=== PATIENT | female | born 2000 | race Caucasian/White ===

== ENCOUNTER 2019-05-17 09:39 | Outpatient (CLI) | payer OTHER, SELFPAY ==
--- NOTE | ~2019-05-17 | NM_ITS ---
EXAMINATION: NM hepatobiliary wo pharm DATE: 05/17/2019 12:17 CDT INDICATION: Abdomen pain COMPARISON: Ultrasound abdomen dated 01/01/2019. TECHNIQUE: 4.8 mCi Tc-99m mebrofenin (Choletec) was administered intravenously. Scintigraphic images of the abdomen were obtained for one hour. At the 1 hour time point, the patient drank 8 oz Ensure, and imaging was continued for 16 60 minutes. Gallbladder ejection fraction was calculated by the tech nologist. FINDINGS: There is normal clearance of radiotracer from the blood pool. There is homogeneous tracer u ptake by the liver. Activity progresses to the bowel and gallbladder. The gallbladder ejection fract ion is %. Note that with this technique, normal GBEF >= 33%. IMPRESSION: 1. Gallbladder ejection fraction below normal limits measuring 16%. Reviewed, dictated and finalized at location A.
== END 2019-05-17 09:40 | disposition home or self-care (01) ==
LOC: ANHIMG 09:45
PROVIDERS: PCP Obstetrics & Gynecology; Visit Provider Advanced Practice Midwife
DX: R10.9 Unspecified abdominal pain (principal); R93.89 Abnormal findings on diagnostic imaging of other specified body structures
CPT/HCPCS: 78226; A9537

== ENCOUNTER 2020-01-23 19:48 | Emergency (ER) | payer OTHER, SELFPAY ==
--- NOTE | ~2020-01-23 | XR_ITS ---
EXAMINATION: XR chest 1V portable DATE: 01/23/2020 20:02 INDICATION: Syncope. Nausea. TECHNIQUE: A single frontal view of the chest was obtained on 2 radiographs. COMPARISON: Chest 2 views 04/29/2017 FINDINGS: The chest demonstrates clear lungs without pneumonia, pleural effusion, or pneumothorax. Th e heart size is normal. IMPRESSION: 1. No acute cardiopulmonary disease. Reviewed, dictated and finalized at location A. [employer]CTION CONTROL EXPEDITER
[2020-01-23 19:50] VITALS: BP 107/64; PULSE 70; RESP 18; TEMP 36.2; O2SAT 100
--- NOTE | 2020-01-23 19:52 | ECG_ITS ---
Measurements Intervals [place] Rate: 64 P: 76 KS: 177 QRS: -63 QRSD: 97 T: 69 QT: 399 QTc: 413 Interpretive Statements SINUS RHYTHM POSSIBLE LEFT ATRIAL ENLARGEMENT INCOMPLETE RIGHT BUNDLE BRANCH BLOCK LOW QRS VOLTAGE IN PRECORDIAL LEADS LEFT ANTERIOR FASCICULAR BLOCK BASELINE ARTIFACT- I, II, AVR, AVL ABNORMAL ECG Electronically Signed On 01-24-2020 7:16:36 ARCHITECTURAL SUPERINTENDENT by Dax Macias D.O.
[2020-01-23] MEDS: SODIUM CHLORIDE 0.9% IV 1,000 ML 999 ML IV CONT (19:56)
[2020-01-23 19:57] VITALS: BP 107/64; BP 115/75; BP 121/82; PULSE 66; PULSE 70; PULSE 78
--- NOTE | 2020-01-23 20:16 | ED.DIZZY ---
HPI - Dizziness General Chief Complaint: Syncope Stated Complaint: donated plasma now dizzy Time Seen by Provider: 01/23/20 19:51 History of Present Illness HPI Narrative: Patient a 19-year-old female who presents emerged department with chief complaint of near syncope. Patient reports that she donated plasma today patient states that she took the bandage off and then started becoming extremely lightheaded and felt as though she was going to pass out. The patient states that whenever she laid down she feels much better patient reports today was her first time ever donating plasma. Patient denies chest pain denies shortness of breath denies abdominal pain denies vomiting or diarrhea. Patient does report that when she was younger she had problems with anemia Related Data Home Medications Medication Instructions Recorded Confirmed drospirenone (contraceptive) 4 mg 4 mg PO DAILY 05/25/19 (28) tablet sertraline 50 mg tablet 50 mg PO DAILY 05/25/19 Allergies Allergy/AdvReac Type Severity Reaction Status Date / Time latex Allergy Unknown Verified 12/16/18 14:05 strawberry Allergy Unknown Verified 12/16/18 14:05 Mushroom Allergy Unknown Uncoded 12/16/18 14:05 [place] Allergy Unknown Uncoded 12/16/18 14:05 Review of Systems Review of Systems: Narrative: CONSTITUTIONAL: Denies fever, chills, or sweats. EYES: Denies visual changes, redness, or discharge. ENT: Denies rhinorrhea, congestion, sore throat, or otalgia. CARDIOVASCULAR: Denies chest pain, palpitations, or edema. RESPIRATORY: Denies cough or dyspnea. GASTROINTESTINAL: Denies abdominal pain, nausea, vomiting, or diarrhea. GENITOURINARY: Denies dysuria or hematuria. SKIN: Denies rash or itching. MUSCULOSKELETAL: Denies back pain, joint pain, or myalgia. NEUROLOGIC: Denies headache, numbness, or weakness. PSYCHIATRIC: Denies anxiety or depression. A 10 system review of systems was completed on the patient and is negative except for what is stated in the HPI. Nursing and ancillary documentation was reviewed. 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 HEAD: Normocephalic, atraumatic. EYES: PERRLA and EOMI. ENT: Nares clear, no rhinorrhea or epistaxis. Mucous membranes moist. NECK: Supple. CHEST: Clear to auscultation. No respiratory distress. HEART: Regular rate and rhythm. No murmur heard. Normal peripheral pulses. ABDOMEN: Soft, nontender, nondistended, normal active bowel sounds. EXTREMITIES: Normal range of motion. No edema. SKIN: Warm, dry, no rash. NEURO: No focal deficits. Alert and oriented x3. PSYCH: Normal mood and affect. Course Course Emergency Course: Patient received a liter of normal saline and is feeling much better at this time Vital Signs Vital signs: Vital Signs Temperature 36.2 C L 01/23/20 19:50 Pulse Rate 70 01/23/20 19:50 Respiratory Rate 18 01/23/20 19:50 Blood Pressure 107/64 01/23/20 19:50 Pulse Oximetry 100 01/23/20 19:50 Temperature 36.2 C L 01/23/20 19:50 Pulse Rate 78 01/23/20 19:57 Respiratory Rate 18 01/23/20 19:50 Blood Pressure 121/82 01/23/20 19:57 Pulse Oximetry 100 01/23/20 19:50 MDM - Dizziness Lab Data Result diagrams: 01/23/20 20:23 01/23/20 20:23 Labs: Lab Results 01/23/20 01/23/20 01/23/20 Range/Units 20:23 20:23 20:23 WBC 6.7 (4.5-10.0) K/mm3 RBC 4.42 (4.2-5.4) M/mm3 Hgb 11.6 L (12.0-15.0) g/dL Hct 37.9 (37.0-47.0) % MCV 85.7 (80-100) fl MCH 26.2 (26-
[2020-01-23 20:31] LABS: Hematocrit 37.9 % (37.0-47.0); Hemoglobin 11.6 g/dL (12.0-15.0); Mean Corpuscular HGB Conc 30.6 g/dl (32-36); Mean Corpuscular Hemoglobin 26.2 pg (26-34); Mean Corpuscular Volume 85.7 fl (80-100); Platelet Count Result 196 k/mm3 (150-375); Red Blood Count 4.42 M/mm3 (4.2-5.4); Red Cell Distribution Width 12.2 % (11.5-14.5); White Blood Count 6.7 K/mm3 (4.5-10.0)
[2020-01-23 20:32] LABS: Basophils Percent Auto 0.4 % (0.2-1.2); Eosinophils Absolute Auto 0.1 K/mm3 (0-0.3); Eosinophils Percent Auto 1.6 % (0-4.4); Immature Granulocyte Absolute 0.02 K/mm3 (0.00-0.031); Immature Granulocyte Percent A 0.3 % (0-0.5); Lymphocytes Absolute Auto 2.38 K/mm3 (0.9-3.2); Lymphocytes Percent Auto 35.7 % (18.3-44.2); Mean Platelet Volume 9.6 fl (7.4-10.4); Monocytes Absolute Auto 0.4 K/mm3 (0.1-0.6); Monocytes Percent Auto 5.5 % (2.6-8.5); Neutrophils Absolute Auto 3.8 K/mm3 (1.3-6.7); Neutrophils Percent Auto 56.5 % (45.5-73.1)
[2020-01-23 20:43] LABS: Alanine Aminotransferase 10 U/L (4-35); Albumin Level 3.2 g/dL (3.5-5.1); Alkaline Phosphatase 54 U/L (38-126); Anion Gap 5 mmol/L (8-16); Aspartate Amino Transferase 16 U/L (14-36); Bilirubin,Total 0.1 mg/dL (0.2-1.3); Blood Urea Nitrogen 14 mg/dL (7-17); Calcium 8.1 mg/dL (8.4-10.2); Carbon Dioxide 24 mmol/L (22-30); Chloride 112 mmol/L (98-107); Estimated CRCL calculation 97 ml/min; Estimated Glomerular Filt Rate > 60; Glucose 88 mg/dL (65-105); Lactic Acid Reflex 0.7 mmol/L (0.7-2.1); Magnesium 1.9 mg/dL (1.6-2.3); Potassium 4.2 mmol/L (3.4-5.0); Sodium 141 mmol/L (137-145)
[2020-01-23 20:54] LABS: Troponin I < 0.012 ng/mL (0.000-0.034)
[2020-01-23 21:21] LABS: Add Urine Microscopic? YES; Appearance Urine Cloudy (Clear); Bacteria Urine Trace /hpf; Bilirubin Urine Negative (Negative); Blood Urine Negative (Negative); Color Urine Yellow (Yellow); Glucose Urine UA Negative (Negative); Ketones Urine Negative (Negative); Leukocyte Esterase Ur Negative LEU/UL (Negative); Mucus Urine Heavy /lpf; Nitrate Urine Negative (Negative); Protein Urine 1+ mg/dL (Negative); RBC Urine 0-2 /hpf (0-2); Specific Grav Ur 1.029 (1.001-1.035); Squamous Epithelial Cell Urine Many /hpf (Few); Urobilinogen Urine Negative mg/dL (<2.0); WBC Urine 0-3 /hpf
[2020-01-23 21:54] VITALS: BP 111/68; PULSE 78; RESP 18; O2SAT 99
== END 2020-01-23 21:55 | disposition home or self-care (01) ==
PROVIDERS: Emergency Provider Emergency Medicine; PCP Obstetrics & Gynecology
DX: R55 Syncope and collapse (principal); E86.0 Dehydration; F41.9 Anxiety disorder, unspecified; F32.9 Major depressive disorder, single episode, unspecified; Z86.2 Personal history of diseases of the blood and blood-forming organs and certain disorders involving the immune mechanism; I45.10 Unspecified right bundle-branch block; R94.31 Abnormal electrocardiogram [ECG] [EKG]
CPT/HCPCS: 36415; 71045; 80053; 81001; 81025; 83605; 83735; 84484; 85025; 93005; 96360; 99284; J7030

== ENCOUNTER 2020-06-17 10:57 | Emergency (ER) | payer OTHER, SELFPAY ==
[2020-06-17] VITALS (10 sets, daily range): BP systolic 83–112; BP diastolic 60–76; PULSE 74–140; RESP 20; TEMP 36.6; O2SAT 97–99
--- NOTE | ~2020-06-17 | XR_ITS ---
EXAMINATION: XR chest 1V portable DATE: 06/17/2020 11:53 INDICATION: Cough. TECHNIQUE: A single frontal view of the chest was obtained. COMPARISON: Chest single view 01/23/2020 FINDINGS: The chest demonstrates clear lungs without pneumonia, pleural effusion, or pneumothorax. Th e heart size is normal. IMPRESSION: 1. No acute cardiopulmonary disease. Reviewed, dictated and finalized at location A.
[2020-06-17 11:27] LABS: Basophils Percent Auto 0.2 % (0.2-1.2); Eosinophils Absolute Auto 0.1 K/mm3 (0-0.3); Eosinophils Percent Auto 1.1 % (0-4.4); Hematocrit 38.6 % (37.0-47.0); Hemoglobin 11.9 g/dL (12.0-15.0); Immature Granulocyte Absolute 0.02 K/mm3 (0.00-0.031); Immature Granulocyte Percent A 0.4 % (0-0.5); Lymphocytes Absolute Auto 0.48 K/mm3 (0.9-3.2); Lymphocytes Percent Auto 10.8 % (18.3-44.2); Mean Corpuscular HGB Conc 30.8 g/dl (32-36); Mean Corpuscular Hemoglobin 25.8 pg (26-34); Mean Corpuscular Volume 83.5 fl (80-100); Mean Platelet Volume 9.7 fl (7.4-10.4); Monocytes Absolute Auto 0.2 K/mm3 (0.1-0.6); Monocytes Percent Auto 4.7 % (2.6-8.5); Neutrophils Absolute Auto 3.7 K/mm3 (1.3-6.7); Neutrophils Percent Auto 82.8 % (45.5-73.1); Platelet Count Result 215 k/mm3 (150-375); Red Blood Count 4.62 M/mm3 (4.2-5.4); Red Cell Distribution Width 12.2 % (11.5-14.5); White Blood Count 4.5 K/mm3 (4.5-10.0)
[2020-06-17 11:32] LABS: Add Urine Microscopic? YES; Appearance Urine Cloudy (Clear); Bacteria Urine Trace /hpf; Bilirubin Urine Negative (Negative); Blood Urine Negative (Negative); Color Urine Yellow (Yellow); Glucose Urine UA Negative (Negative); Ketones Urine Negative (Negative); Leukocyte Esterase Ur 1+ LEU/UL (Negative); Mucus Urine Heavy /lpf; Nitrate Urine Negative (Negative); Protein Urine 2+ mg/dL (Negative); Specific Grav Ur 1.032 (1.001-1.035); Squamous Epithelial Cell Urine Many /hpf (Few); Urobilinogen Urine Negative mg/dL (<2.0); WBC Urine 0-3 /hpf
--- NOTE | 2020-06-17 11:38 | ED.NAVMDI ---
HPI - Nausea/Vomiting/Diarrhea General Chief complaint: Nausea/Vomiting/Diarrhea Stated complaint: Diarrhea/Vomiting Time Seen by Provider: 06/17/20 11:04 Source: patient Mode of arrival: ambulatory Limitations: no limitations History of Present Illness HPI Narrative: This is a 19 year old female who presents for evaluation nausea, vomiting and diarrhea. She developed vomiting and diarrhea at midnight. She reports 10 episodes of watery, nonbloody diarrhea this morning. She also reports constant midabdominal cramping, but denies fever or chills. She denies any sick contacts. She ate [employer] yesterday,but she states she was not feeling well at that time so she ate very little. She reports runny nose and mild cough for a couple weeks. 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 She reports having COVID 19 a few months ago. She denies covid vaccination. Related Data Home Medications Medication Instructions Recorded Confirmed drospirenone (contraceptive) 4 mg 4 mg PO DAILY 05/25/19 (28) tablet sertraline 50 mg tablet 50 mg PO DAILY 05/25/19 Allergies Allergy/AdvReac Type Severity Reaction Status Date / Time latex Allergy Unknown Unknown Verified 06/17/20 11:13 strawberry Allergy Unknown Unknown Verified 06/17/20 11:13 Mushroom Allergy Unknown Unknown Uncoded 06/17/20 11:13 [place] Allergy Unknown Unknown Uncoded 06/17/20 11:13 Review of Systems Review of Systems: All systems reviewed & are unremarkable except as noted in HPI and below Constitutional: Constitutional: Denies chills, Reports fatigue and Denies fever(s) ENT: Denies sore throat Cardiovascular: Cardiovascular: Denies chest pain Respiratory: Respiratory: Denies dyspnea Gastrointestinal: Gastrointestinal: Reports abdominal pain, Reports diarrhea, Reports nausea and Reports vomiting PMFSH Past Medical History Medical History Anxiety Depression Social History Social History Smoking status: Never smoker Alcohol intake: never Additional occupation/education comments: teacher's aid Gender identity (if verbalized by the patient): Female Exam Const: General: no acute distress and alert Orientation/consciousness: patient oriented x3 Eyes: EOM: EOMs intact bilaterally Resp: Effort & Inspection: normal respiratory effort and no retractions Auscultation: clear to auscultation bilaterally Cardio: Rate: regular rate Rhythm: regular rhythm Heart sounds: no murmurs GI: GI Palp: Yes Soft to palpation, Yes Tenderness to palpation present (GI) and No Guarding due to palpation present (GI) Auscultation: normal bowel sounds Skin: General skin exam: normal color Rashes: no rashes Neuro: General: patient oriented x3, moves all extremities and CN's II-XI intact bilaterally Psych: Mental Status: mental status grossly normal Affect: normal affect Course Reevaluation(s) Reevaluation #1: Patient states she feels better. She was able to tolerated PO. No focal tendnerness, benign exam. no fever. This seems unlikely appendicitis. Date: 06/17/20 Time: 14:39 Vital Signs Vital signs: Vital Signs Temperature 98 F 06/17/20 11:10 Pulse Rate 100 06/17/20 11:10 Respiratory Rate 20 06/17/20 11:10 Blood Pressure 112/61 06/17/20 11:10 Pulse Oximetry 98 06/17/20 11:10 Temperature 98 F 06/17/20 11:10 Pulse Rate 95 06/17/20 15:07 Respiratory Rate 20 06/17/20 15:07 Blood Pressure 104/69 06/17/20 15:07 Pulse Oximetry 97 06/17/20 15:07 MDM - Nausea/Vomiting/Diarrhea Lab Data Attestation: I reviewed the patient's lab results. Result diagrams: 06/17/20 11:18 06/17/20 11:18 Labs: Lab Results 06/17/20 06/17/20 06/17/20 Range/Units 11:18 11:18 11:18 WBC 4.5 (4.5-10.0) K/mm3 RBC 4.62
[2020-06-17] MEDS: ONDANSETRON INJ 4 MG/2 ML VIAL IV PUSH (11:43)
[2020-06-17] MEDS: LACTATED RINGERS 1,000 ML 999 ML IV CONT ×2 (11:43→11:44)
[2020-06-17 11:44] LABS: Alanine Aminotransferase 17 U/L (4-35); Albumin Level 4.5 g/dL (3.5-5.1); Alkaline Phosphatase 76 U/L (38-126); Anion Gap 12 mmol/L (8-16); Aspartate Amino Transferase 23 U/L (14-36); Bilirubin,Total 0.6 mg/dL (0.2-1.3); Blood Urea Nitrogen 16 mg/dL (7-17); Calcium 8.9 mg/dL (8.4-10.2); Carbon Dioxide 22 mmol/L (22-30); Chloride 106 mmol/L (98-107); Estimated CRCL calculation 97 ml/min; Estimated Glomerular Filt Rate > 60; Glucose 107 mg/dL (65-105); Lipase 30 U/L (23-300); Potassium 3.9 mmol/L (3.4-5.0); Sodium 140 mmol/L (137-145)
--- NOTE | 2020-06-17 14:10 | PC.NURSE ---
PT TOLERATED PO CHALLENGE. DENIES ANY N/V AT THIS TIME
== END 2020-06-17 15:09 | disposition home or self-care (01) ==
PROVIDERS: Emergency Provider General Practice; PCP Obstetrics & Gynecology
DX: K52.9 Noninfective gastroenteritis and colitis, unspecified (principal); E86.0 Dehydration; Z86.16 Personal history of COVID-19; F41.9 Anxiety disorder, unspecified; F32.9 Major depressive disorder, single episode, unspecified
CPT/HCPCS: 36415; 71045; 80053; 81001; 81025; 83690; 85025; 96361; 96365; 96375; 99284; J0131; J2405; J7120

== ENCOUNTER 2021-08-25 10:00 | Emergency (ER) | payer OTHER, SELFPAY ==
--- NOTE | ~2021-08-25 | US_ITS ---
US renal BI DATE: 08/25/2021 12:39 INDICATION: Bilateral flank pain in 15 week gravid patient TECHNIQUE: Real-time imaging of kidneys and urinary bladder COMPARISON: 01/01/2019 complete abdominal ultrasound examination FINDINGS: Right kidney measures 11.2 cm length, left kidney 11.0 cm. No renal mass lesion or hydronep hrosis is evident. The urinary bladder is unremarkable. IMPRESSION: No significant abnormality Reviewed, dictated and finalized at Location A. Reviewed, dictated and finalized at location A. IMPRESSION: No significant abnormality
[2021-08-25 10:10] VITALS: BP 104/68; PULSE 97; RESP 17; TEMP 36.4; O2SAT 99
--- NOTE | 2021-08-25 10:51 | ED.BACK ---
HPI - Back Pain/Injury General Chief Complaint: Back Pain/Injury Stated Complaint: 15 weeks , back pain, pelvic pain Time Seen by Provider: 08/25/21 10:42 History of Present Illness HPI Narrative: Patient is a 20-year-old G2, P1 female with a history of endometriosis who is currently 14 weeks here for evaluation of atraumatic right-sided back pain. Patient states that the pain came on this morning, is severe in nature, and remains in her right flank region. The pain does not radiate. Pain is constant and is not worse with positions. Denies nausea, vomiting, dysuria, hematuria, fevers, chills, incontinence or retention of bowel or bladder, saddle anesthesia. She tried a Flexeril this morning without relief. Additionally, patient has been experiencing some pelvic pain for the past several weeks she has had worked up by her CERTIFIED NEURODIAGNOSTIC TECHNOLOGIST Dr. Kemp, reportedly ultrasounds have been reassuring. No vaginal bleeding, sudden gush of fluids, syncope. Related Data Home Medications Medication Instructions Recorded Confirmed drospirenone (contraceptive) 4 mg 4 mg PO DAILY 05/25/19 (28) tablet ([place]) sertraline 50 mg tablet (Zoloft) 50 mg PO DAILY 05/25/19 Allergies Allergy/AdvReac Type Severity Reaction Status Date / Time latex Allergy Unknown Unknown Verified 06/17/20 11:13 strawberry Allergy Unknown Unknown Verified 06/17/20 11:13 Mushroom Allergy Unknown Unknown Uncoded 06/17/20 11:13 [place] Allergy Unknown Unknown Uncoded 06/17/20 11:13 Review of Systems Review of Systems: Gen: Denies fevers or chills Eyes: Denies eye pain or visual change ENT: Denies congestion Respiratory: Denies shortness of breath or cough CV: Denies chest pain or palpitations GI: Denies abdominal pain nausea, emesis or diarrhea denies burning, urgency, frequency or hematuria Musculoskeletal: Reports back pain. Neuro: Denies numbness, tingling, weakness or focal weakness Skin: Denies rash Except as documented, all other systems reviewed and negative PMFSH Past Medical History Medical History Anxiety Depression Social History Social History Smoking status: Never smoker Alcohol intake: never Additional occupation/education comments: teacher's aid Gender identity (if verbalized by the patient): Female Exam Narrative: APPEARANCE: Well appearing, no pain in distress, well-nourished. Head: Normocephalic and atraumatic. EYES: PERRLA/EOMI, conjunctivae clear NOSE: No nasal drainage EARS: External ear normal in appearance THROAT: Oropharynx is clear. Mucous membranes are moist. NECK: Supple. No adenopathy, no masses. RESPIRATORY: Airway patent, respirations nonlabored. Clear to auscultation bilaterally, no rales, rhonchi, wheezing. CARDIOVASCULAR: Regular rate and rhythm without murmurs, rubs, or gallops. ABDOMINAL: Gravid uterus. No tenderness to palpation. Normoactive bowel sounds. Soft. No rebound tenderness or guarding. MUSCULOSKELETAL: No CVA tenderness. No tenderness along C, T, or L-spine. Extremities are warm and well-perfused. Moves all extremities well. No edema. NEURO: Normal speech. No focal neurologic deficits. SKIN: Skin is warm and dry. No rashes. PSYCHIATRIC: Normal affect/mood. Course Course Emergency Course: heart tones detected at 145 bpm. Vital Signs Vital signs: Vital Signs Temperature 97.6 F 08/25/21 10:10 Pulse Rate 97 08/25/21 10:10 Respiratory Rate 17 08/25/21 10:10 Blood Pressure 104/68 08/25/21 10:10 Pulse Oximetry 99 08/25/21 10:10 Oxygen Delivery Room Air 08/25/21 10:10 Temperature 97.6 F 08/25/21 10:10 Pulse Rate 75 08/25/21 13:15 Respiratory Rate 16 08/25/21 13:15 Blood Pressure 97/66 L 08/25/21 13:15 Pulse Oximetry 95 08/25/21 13:15 Oxygen Delivery Room Air 08/25/21 10:10 MDM - Back Pain/Injury MDM N
[2021-08-25] MEDS: ACETAMINOPHEN 325 MG TABLET 650 MG PO (11:06)
[2021-08-25] MEDS: LIDOCAINE 5% PATCH 1 PATCH TRANSDERM (11:06)
[2021-08-25 11:15] LABS: Basophils Percent Auto 0.3 % (0.2-1.2); Eosinophils Absolute Auto 0.1 K/mm3 (0-0.3); Eosinophils Percent Auto 1.8 % (0-4.4); Hematocrit 33.4 % (37.0-47.0); Hemoglobin 10.5 g/dL (12.0-15.0); Immature Granulocyte Absolute 0.04 K/mm3 (0.00-0.031); Immature Granulocyte Percent A 0.6 % (0-0.5); Lymphocytes Absolute Auto 1.14 K/mm3 (0.9-3.2); Lymphocytes Percent Auto 17.5 % (18.3-44.2); Mean Corpuscular HGB Conc 31.4 g/dl (32-36); Mean Corpuscular Hemoglobin 26.5 pg (26-34); Mean Corpuscular Volume 84.3 fl (80-100); Mean Platelet Volume 9.7 fl (7.4-10.4); Monocytes Absolute Auto 0.4 K/mm3 (0.1-0.6); Monocytes Percent Auto 6.3 % (2.6-8.5); Neutrophils Absolute Auto 4.8 K/mm3 (1.3-6.7); Neutrophils Percent Auto 73.5 % (45.5-73.1); Platelet Count Result 198 k/mm3 (150-375); Red Blood Count 3.96 M/mm3 (4.2-5.4); Red Cell Distribution Width 13.1 % (11.5-14.5); White Blood Count 6.5 K/mm3 (4.5-10.0)
[2021-08-25 11:25] LABS: Alanine Aminotransferase 7 U/L (6-35); Albumin Level 3.7 g/dL (3.5-5.1); Alkaline Phosphatase 46 U/L (38-126); Anion Gap 3 mmol/L (8-16); Aspartate Amino Transferase 15 U/L (14-36); Bilirubin,Total 0.2 mg/dL (0.2-1.3); Blood Urea Nitrogen 5 mg/dL (7-17); Calcium 8.8 mg/dL (8.4-10.2); Carbon Dioxide 26 mmol/L (22-30); Chloride 107 mmol/L (98-107); Estimated CRCL calculation 112 ml/min; Estimated Glomerular Filt Rate > 60; Glucose 88 mg/dL (65-110); Potassium 4.1 mmol/L (3.4-5.0); Sodium 136 mmol/L (137-145)
[2021-08-25 11:46] LABS: Appearance Urine Cloudy (Clear); Bilirubin Urine Negative (Negative); Blood Urine Negative (Negative); Color Urine Yellow (Yellow); Glucose Urine UA Negative (Negative); Ketones Urine Negative (Negative); Leukocyte Esterase Ur Negative LEU/UL (Negative); Nitrate Urine Negative (Negative); Protein Urine Negative (Negative); pH Urine 8.5 (5.0-9.0)
[2021-08-25 11:51] LABS: Amorphous Sediment Urine Few; Mucus Urine Rare /lpf; Squamous Epithelial Cell Urine Few /hpf (Few); WBC Urine 0-3 /hpf
[2021-08-25 11:52] LABS: Add Urine Microscopic? YES
[2021-08-25 13:15] VITALS: BP 97/66; PULSE 75; RESP 16; O2SAT 95
== END 2021-08-25 13:16 | disposition home or self-care (01) ==
PROVIDERS: Physician Assistant; Emergency Provider Emergency Medicine; PCP Obstetrics & Gynecology
DX: O26.892 Other specified pregnancy related conditions, second trimester (principal); S39.012A Strain of muscle, fascia and tendon of lower back, initial encounter; X58.XXXA Exposure to other specified factors, initial encounter
CPT/HCPCS: 36415; 76775; 80053; 81001; 81025; 85025; 99284; A9270

== ENCOUNTER 2021-10-27 21:48 | Outpatient (CLI) | payer OTHER, SELFPAY ==
[2021-10-27] VITALS (7 sets, daily range): BP systolic 104–113; BP diastolic 60–70; PULSE 78–82
[2021-10-27 22:50] LABS: Appearance Urine Clear (Clear); Bilirubin Urine Negative (Negative); Blood Urine Negative (Negative); Color Urine Yellow (Yellow); Glucose Urine UA Negative (Negative); Ketones Urine Negative (Negative); Leukocyte Esterase Ur Negative LEU/UL (Negative); Nitrate Urine Negative (Negative); Protein Urine Negative (Negative); Urobilinogen Urine 0.2 mg/dL (<2.0); pH Urine 6.5 (5.0-9.0)
[2021-10-27 22:58] LABS: Add Urine Microscopic? NO; RBC Urine 0-2 /hpf (0-2); WBC Urine 0-3 /hpf
== END 2021-10-28 | disposition home or self-care (01) ==
LOC: ANHOBOP 21:52 → ANHOBPP 10-28 04:44
PROVIDERS: PCP Obstetrics & Gynecology; Visit Provider Advanced Practice Midwife
DX: Z39.2 Encounter for routine postpartum follow-up (principal)
CPT/HCPCS: 81003; 99199

== ENCOUNTER 2021-11-02 08:49 | Outpatient (CLI) | payer OTHER, SELFPAY ==
--- NOTE | 2021-11-05 16:45 | WPDHOLTEREM ---
Holter/Event Monitor Holter/Event Monitor Date of procedure: 11/02/21 Holter/Event Procedure: 24 Hr Holter Monitor Indications: Syncope Conclusion: 1. 24 hour holter monitor on 11/02/21. 2. Underlying rhythm is sinus rhythm. HR range 63-146 bpm; average HR 90 bpm. 3. There are 5 premature supraventricular complexes. No supraventricular tachycardia. 4. No premature ventricular complexes. No ventricular tachycardia. 5. No sinoatrial or atrioventricular blocks. No significant pauses greater than 2 seconds. 6. Patient reports symptoms of chest pain, dizziness which demonstrate sinus rhythm, HR range 82-111 bpm.
== END 2021-11-02 08:50 | disposition home or self-care (01) ==
LOC: ANHCARD 08:51
PROVIDERS: Visit Provider Advanced Practice Midwife
DX: O13.9 Gestational [pregnancy-induced] hypertension without significant proteinuria, unspecified trimester (principal); Z3A.00 Weeks of gestation of pregnancy not specified
CPT/HCPCS: 93225; 93226

== ENCOUNTER 2022-01-12 01:30 | Observation (INO) | payer OTHER, SELFPAY ==
[2022-01-12 01:21] VITALS: BP 103/64; PULSE 132; RESP 16; TEMP 36.5; O2SAT 99
--- NOTE | 2022-01-12 01:30 | OBADM ---
This patient, Melani Chery, admitted to the OB room OB Post 117 for observation. Patient/family oriented to hospital policies and general routines including ID bracelet, bed and alarms, visiting hours, pain management, procedures, bathroom and other care routines, personal items, smoking policy, room service/diet, and visiting hours. Patient/Family are encouraged to report perceived risks to care and to ask questions if they do not understand what they are told or what they should do.
[2022-01-12 01:53] VITALS: RESP 17; TEMP 37.2
[2022-01-12 01:55] VITALS: BMI 24.5
--- NOTE | 2022-01-12 01:58 | PC.NURSE ---
Notified Dr. Kemp of patient arrival to OB unit with complaint of nausea/emesis/diarrhea starting 01/11/2022 at 1900. Patient reports she is unable to tolerate any liquids or food at present time. Patient denies any contractions/cramping/pain and reports active movement. VSS.
[2022-01-12] MEDS: DEXTROSE 5%/LACTATED RINGERS 1,000 ML 999 ML IV CONT ×2 (02:06→03:24)
[2022-01-12] MEDS: FAMOTIDINE 20 MG/2 ML VIAL IV PUSH (02:09)
[2022-01-12] MEDS: ONDANSETRON INJ 4 MG/2 ML VIAL IV PUSH (02:12)
--- NOTE | 2022-01-12 03:24 | PC.NURSE ---
Patient sleeping comfortably, no new episodes of emesis following medication administration.
--- NOTE | 2022-01-12 05:00 | PC.NURSE ---
Patient sleeping comfortably. Patient tolerating clear liquids without nausea or emesis. Patient states she is feeling better and would like to go home.Discharge instructions reviewed with patient. Patient states understanding of discharge instructions and denies questions. Patient agreeable to discharge.
[2022-01-12 05:07] VITALS: RESP 17; TEMP 36.9
--- NOTE | 2022-02-03 18:59 | PM.OBTRLD ---
OB - Triage/Final Diagnosis Visit Information Comments/Additional reasons for admission: I have assessed the risk for this patient, Melani Chery, and determined that she would benefit from observation care. Final Diagnosis (1) Nausea/vomiting in : Code(s): O21.9 - Vomiting of , unspecified Status: Acute
== END 2022-01-12 05:18 | disposition home or self-care (01) ==
PROVIDERS: Admitting Provider Obstetrics & Gynecology; Visit Provider Obstetrics & Gynecology
DX: O21.8 Other vomiting complicating pregnancy (principal); Z3A.34 34 weeks gestation of pregnancy
CPT/HCPCS: 96361; 96374; 96375; G0378; G0379; J2405; J7121

== ENCOUNTER 2022-02-07 20:22 | Observation (INO) | payer OTHER, SELFPAY ==
[2022-02-07] VITALS (8 sets, daily range): BP systolic 103–123; BP diastolic 67–83; PULSE 79–112; BMI 25.1
[2022-02-07 21:22] LABS: Add Urine Microscopic? YES; Appearance Urine Clear (Clear); Bilirubin Urine Negative (Negative); Blood Urine Negative (Negative); Color Urine Yellow (Yellow); Glucose Urine UA Negative (Negative); Ketones Urine Trace mg/dL (Negative); Leukocyte Esterase Ur Negative LEU/UL (Negative); Nitrate Urine Negative (Negative); Protein Urine 1+ mg/dL (Negative); Specific Grav Ur 1.025 (1.001-1.035); Urobilinogen Urine 0.2 mg/dL (<2.0); pH Urine 6.5 (5.0-9.0)
[2022-02-07 21:29] LABS: Amorphous Sediment Urine Few; Bacteria Urine Trace /hpf; Mucus Urine Moderate /lpf; Squamous Epithelial Cell Urine Occasional /hpf (Few); WBC Urine 0-3 /hpf
--- NOTE | 2022-02-07 22:00 | OBADM ---
This patient, Melani Chery, admitted to the OB room Labor/Delivery/Recovery 105 for observation. Patient/family oriented to hospital policies and general routines including ID bracelet, bed and alarms, visiting hours, pain management, procedures, bathroom and other care routines, personal items, smoking policy, room service/diet, and visiting hours. Patient/Family are encouraged to report perceived risks to care and to ask questions if they do not understand what they are told or what they should do.
--- NOTE | 2022-02-07 23:05 | PC.NURSE ---
Spoke with Dr. Kemp about patients complaints of contractions and increased pelvic pressure. FHR and contractions reviewed with Dr. Kemp Discussed that patient is naren, but pattern is irregular 2-15 minutes apart. Cervical Exams discussed with Doctor ash that Patient is 2 Cm dilated with all 3 checks. Urine results discussed with Dr. Kemp and he does not feel it needs to be treated. Orders to d/c patient.
--- NOTE | 2022-03-03 20:58 | P.PNOB_ITS ---
OB - Triage/Final Diagnosis Visit Information Comments/Additional reasons for admission: I have assessed the risk for this patient, Melani Chery, and determined that she would benefit from observation care. Evaluation Laboratory results: Laboratory Tests 02/07/22 21:15 Urine Color Yellow Urine Appearance Clear Urine pH 6.5 Ur Specific [place] 1.025 Urine Protein 1+ H Urine Glucose (UA) Negative Urine Ketones Trace Ur Blood (Man) Negative Urine Nitrate Negative Urine Bilirubin Negative Urine Urobilinogen 0.2 Leukocyte Esterase Rfl Negative Urine RBC 3-5 H Urine WBC 0-3 Ur Squamous Epith Cells Occasional Amorphous Sediment Few H Urine Bacteria Trace Urine Mucus Moderate H Final Diagnosis (1) Uterine contractions: Code(s): O47.9 - False labor, unspecified Status: Acute
== END 2022-02-07 23:30 | disposition home or self-care (01) ==
PROVIDERS: Advanced Practice Midwife; Admitting Provider Obstetrics & Gynecology; Visit Provider Obstetrics & Gynecology
DX: O47.9 False labor, unspecified (principal); Z3A.00 Weeks of gestation of pregnancy not specified
CPT/HCPCS: 81001; G0378; G0379

== ENCOUNTER 2022-02-08 04:48 | Inpatient (IN) | payer OTHER, SELFPAY ==
[2022-02-08] VITALS (84 sets, daily range): BP systolic 90–133; BP diastolic 49–95; PULSE 76–195; RESP 18; TEMP 36.8–37.1; O2SAT 96–100; BMI 25.1
--- NOTE | 2022-02-08 05:19 | LDADM ---
This patient, Melani Chery, was admitted to Labor/Delivery/Recovery 105 on 02/08/22 at 04:48. Plans for labor, pain management and were discussed with patient. Patient/family oriented to hospital policies and general routines including ID bracelet, bed and alarms, visiting hours, pain management, procedures, bathroom and other care routines, personal items, smoking policy, room service/diet and guest tray routines, security routines, and visiting hours. Patient/Family are encouraged to report perceived risks to care and to ask questions if they do not understand what they are told or what they should do. See OBIX for further documentation.
[2022-02-08 05:41] LABS: Basophils Percent Auto 0.4 % (0.2-1.2); Eosinophils Absolute Auto 0.2 K/mm3 (0-0.3); Eosinophils Percent Auto 1.7 % (0-4.4); Hematocrit 32.8 % (37.0-47.0); Immature Granulocyte Absolute 0.16 K/mm3 (0.00-0.031); Immature Granulocyte Percent A 1.6 % (0-0.5); Lymphocytes Percent Auto 18.5 % (18.3-44.2); Mean Corpuscular HGB Conc 30.5 g/dl (32-36); Mean Corpuscular Hemoglobin 25.3 pg (26-34); Mean Corpuscular Volume 82.8 fl (80-100); Mean Platelet Volume 9.8 fl (7.4-10.4); Monocytes Absolute Auto 0.8 K/mm3 (0.1-0.6); Monocytes Percent Auto 7.9 % (2.6-8.5); Neutrophils Absolute Auto 7.2 K/mm3 (1.3-6.7); Neutrophils Percent Auto 69.9 % (45.5-73.1); Platelet Count Result 273 k/mm3 (150-375); Red Blood Count 3.96 M/mm3 (4.2-5.4); Red Cell Distribution Width 14.8 % (11.5-14.5); White Blood Count 10.3 K/mm3 (4.5-10.0)
--- NOTE | 2022-02-08 06:13 | PC.NURSE ---
Report given to ALLEGRA Escalante
[2022-02-08] MEDS: LACTATED RINGERS 1,000 ML 125 ML IV CONT ×2 (07:23→08:19)
--- NOTE | 2022-02-08 07:29 | WPDOBADMIT ---
Obstetrics - Admit Note Admission Note: record reviewed. No pertinent additions to the history and/or any subsequent changes in the physical findings that are not consistent with the expected course of the were found. Admitted in labor, AROM clear, odorless fluid, SVE /-2, hx questionable hyperthyroid in , last tsh wnl, anemia, anxiety and depression stable on zoloft, anticipate vaginal delivery Additions to the history and/or subsequent changes in the physical findings follow. None.
[2022-02-08] MEDS: fentaNYL CITRATE INJ (*CRX) 100 MCG/2 ML VIAL 50 MCG IV PUSH (07:54)
--- NOTE | 2022-02-08 08:14 | WPDANESEPPF ---
Anes - Initial Pre Proc Eval Date/Time: 02/08/22 08:14 Surgeon: Gianna Kemp MD Pre Op Diagnosis: Contractions Patient Data Age: 21 Gender: F Height: 1.73 m Weight: 75 kg Last Vital Signs Temp 36.8 C 02/08/22 07:00 Pulse 107 H 02/08/22 08:12 BP 114/64 02/08/22 08:12 Pulse Ox 97 02/08/22 08:12 O2 Del Method Room Air 02/08/22 05:19 Allergies Allergy/AdvReac Type Severity Reaction Status Date / Time latex Allergy Mild Rash Verified 02/08/22 05:17 mushroom Allergy Mild Rash Verified 02/08/22 05:17 strawberry Allergy Mild Rash Verified 02/08/22 05:17 Home Medications Medication Instructions Recorded Confirmed Type ferrous sulfate 325 mg (65 mg 325 mg PO BID 01/21/22 02/08/22 History iron) tablet prenat.vits,danny,ufz-qlot-aocin 1 tablet PO DAILY 01/21/22 02/08/22 History sertraline 50 mg tablet (Zoloft) 50 mg PO DAILY 01/21/22 02/08/22 History Laboratory Tests 02/08/22 02/08/22 05:29 05:29 WBC 10.3 K/mm3 H K/mm3 (4.5-10.0) RBC 3.96 M/mm3 L M/mm3 (4.2-5.4) Hgb 10.0 g/dL L g/dL (12.0-15.0) Hct 32.8 % L % (37.0-47.0) MCV 82.8 fl fl (80-100) MCH 25.3 pg L pg (26-34) MCHC 30.5 g/dl L g/dl (32-36) RDW 14.8 % H % (11.5-14.5) Plt Count 273 k/mm3 k/mm3 (150-375) MPV 9.8 fl fl (7.4-10.4) Immature Gran % (Auto) 1.6 % H % (0-0.5) Neut % (Auto) 69.9 % % (45.5-73.1) Lymph % (Auto) 18.5 % % (18.3-44.2) [place] % (Auto) 7.9 % % (2.6-8.5) Eos % (Auto) 1.7 % % (0-4.4) Baso % (Auto) 0.4 % % (0.2-1.2) Lymph # (Auto) 1.90 K/mm3 K/mm3 (0.9-3.2) [place] # (Auto) 0.8 K/mm3 H K/mm3 (0.1-0.6) Eos # (Auto) 0.2 K/mm3 K/mm3 (0-0.3) Baso # (Auto) 0.0 K/mm3 K/mm3 (0.0-0.1) Abs Immat Gran (auto) 0.16 K/mm3 H K/mm3 (0.00-0.031) Absolute Neuts (auto) 7.2 K/mm3 H K/mm3 (1.3-6.7) Absolute Nucleated RBC 0.0 K/mm3 K/mm3 (0.0-0.012) Nucleated RBC % 0.0 % % (0.0-0.2) RPR Pending Patient hx anesthesia problems: none Family hx anesthesia problems: none Results Review: All pre-operative results and documents have been reviewed as part of the pre-operative evaluation. [facility] Family History Family History Mother Thyroid cancer Social History Social History Smoking status: Never smoker Substance use: never Lack of Transportation: No Lack of Food: Never True Current Housing: I Have Housing Concerned About Future Housing: No Difficulty Paying Gas/Electric Bills: No Difficulty Paying for Meds: No Currently Unemployed: No Education: High School Diploma/GED Difficulty w/ Childcare or Family Care: No Spiritual care concerns: No Anes - Eval Final PreProcedure Day of Procedure 02/08/22 08:14 Patient weight: normal Heart: regular rate and rhythm Lungs: clear to auscultation Neurological: alert and oriented ASA classification: II Emergent: no Anesthetic plan: proceed Anesthesia type and monitoring: regional epidural and standard monitoring Results Review: All pre-operative results and documents have been reviewed as part of the pre-operative evaluation. Informed Consent: The patient's anesthetic plan and its attendant risks and benefits were discussed with the patient/family/POA. Questions were solicited and answers provided to the satisfaction of the patient/family/POA.
[2022-02-08] MEDS: OXYTOCIN 30 UNITS/NS 500 ML 30 UNITS/500 ML BAG IV CONT (09:18)
--- NOTE | 2022-02-08 11:51 | P.PCNOB_ITS ---
OB - Delivery Note Procedure Delivery date: 02/08/22 Procedure: vaginal delivery Delivery augmentation: Rupture of Membranes Delivery monitor: External FHT, External Uterine and Internal Uterine Route of delivery: Episiotomy description: None Laceration Description: Perineal - 2nd Degree Delivery repair: vicryl Specimen: No Quantitative Blood Loss (ml): 400 Anesthesia type: Epidural Disposition: Floor [place] Baby Date of : 02/08/22 Time of : 11:33 Weeks of gestation at delivery: 38 Infant gender: Male Weight (pounds): 8 Weight (ounces): 15 presentation: vertex position: Left Occiput Posterior Placenta delivery description: Spontaneous Cord Vessel Description: 3 Vessels, Clamped/Cut and Delayed Cord Clamping score one minute: 8 score five minutes: 9 Narrative: mother and baby skin to skin in stable condition
[2022-02-08] MEDS: OXYTOCIN 30 UNITS/NS 500 ML 30 UNITS/500 ML BAG 125 UNITS IV CONT (12:05)
[2022-02-08] MEDS: WITCH HAZEL 40 PADS 1 PAD TOPICAL (14:03)
[2022-02-08] MEDS: diphenhydrAMINE HCl CAP 25 MG CAPSULE (14:04)
[2022-02-08] MEDS: BENZOCAINE 20% AER SPR (*SP) 56 GM CAN 1 SPRAY TOPICAL (14:04)
[2022-02-08] MEDS: ONDANSETRON INJ 4 MG/2 ML VIAL (14:04)
[2022-02-08 14:41] LABS: Rapid Plasma Reagin Non-Reactive (NonReactive)
[2022-02-08] MEDS: DIBUCAINE 1% OINTMENT 30 GM TUBE 1 APPLIC TOPICAL (16:10)
[2022-02-08] MEDS: DOCUSATE SODIUM 100 MG CAPSULE PO (16:10)
[2022-02-08] MEDS: LANOLIN (LANSINOH) 7.5 GM CREAM 1 APPLIC TOPICAL (16:38)
[2022-02-08] MEDS: IBUPROFEN 600 MG TABLET PO (17:30)
[2022-02-09 00:20] VITALS: BP 106/71; PULSE 96; RESP 18; TEMP 37.1; O2SAT 97
[2022-02-09] MEDS: ACETAMINOPHEN 325 MG TABLET 650 MG PO ×2 (00:40→15:58)
[2022-02-09 05:26] VITALS: BP 113/79; PULSE 83; RESP 16; TEMP 36.8; O2SAT 97
[2022-02-09 05:29] LABS: Hemoglobin 7.2 g/dL (12.0-15.0)
--- NOTE | 2022-02-09 08:16 | PM.OBPNVD ---
OB - PN: Subj Subjective Date/time seen: 02/09/22 08:16 Patient comments: no complaints and pain well controlled baby status: doing well Narrative: would like DC home. OB - PN: Obj Data Labs 02/09/22 04:52 Labs: Laboratory Results - last 24 hr 02/08/22 02/08/22 02/09/22 05:29 05:29 04:52 Hgb 7.2 L Hct 24.0 L RPR Non-reactive Blood Type A Positive Antibody Screen Negative OB - PN A/P Plan day: 1 Plan: routine care Comments: anemia- IV iron x1 prior to DC consented for circumcision Time Spent With Patient Time: Total time spent is greater than 50% in coordination of care (as documented) at patient's floor/unit and/or counseling patient: Time with patient: less than 15 minutes Exam Narrative: NAD abdomen soft, nontender, fundus firm below the umbilicus Extremities nontender, 1+ edema
--- NOTE | 2022-02-09 08:19 | PM.OBDSVD ---
DS: Admitting Diagnosis Discharge Date 02/09/22 Admitting Diagnosis term iup DS: Discharge Diagnosis Discharge Diagnosis (1) , delivered: Code(s): O80 - Encounter for full-term uncomplicated delivery Status: Acute OB - DS: Summary Hospital Course Hospital Course: Melani was admitted for induction of labor. She proceeded to have an uncomplicated vaginal delivery and course and was discharged home on PPD 1. OB Procedures : Ultrasound OB Procedures Intrapartum: Spontaneous Vag Delivery OB Procedures: : None Peripartum Data Delivery Method: Natural Vaginal complications: none Status at Discharge Functional status at discharge: independent ambulation Time Spent with Patient Time attestation: Total time spent providing and/or coordinating discharge services: Exam Narrative: NAD abdomen soft, appropriately tender Ext non tender, 1+ edema DS: Data Data Completed and Pending Labs on day of discharge: Labs from last 24 hours 02/09/22 02/08/22 02/08/22 04:52 05:29 05:29 Hgb 7.2 L Hct 24.0 L RPR Non-reactive Blood Type A Positive Antibody Screen Negative Discharge Plan Discharge Attending physician on discharge: Gail Marshall Discharging Clinician: Gail Marshall Anticipated Discharge Date/Time: 02/09/22 14:00 Patient Disposition: Home, Self-Care Activity: pelvic rest Diet: regular Patient Instructions: Antibiotic Form Stand Alone Forms: General Discharge Information Follow-up/Referrals: Анна Geller CNM [Primary Care Provider] - 4 Weeks Discharge Medications: Continued ferrous sulfate 325 mg (65 mg iron) Tablet 325 mg PO BID sertraline [Zoloft] 50 mg Tablet 50 mg PO DAILY #2 Tablet 1 tablet PO DAILY Date of admission: 02/08/22 04:48 Primary Care Provider: Анна Geller Admitting Provider: Gianna Kemp Attending physician on admission: Gianna Kemp Condition: Stable
[2022-02-09 08:25] VITALS: BP 113/67; PULSE 86; RESP 16; TEMP 36.4; O2SAT 96
[2022-02-09] MEDS: IBUPROFEN 600 MG TABLET PO ×3 (08:25→20:45)
[2022-02-09] MEDS: MULTIVIT/MIN/PREN/FOL AC/IRON TABLET 1 TAB PO (08:26)
[2022-02-09] MEDS: POLYSACCHARIDE IRON COMPLEX 150 MG CAPSULE PO ×2 (08:26→15:57)
[2022-02-09] MEDS: SERTRALINE HCL 50 MG TABLET PO (08:26)
[2022-02-09] MEDS: DOCUSATE SODIUM 100 MG CAPSULE PO ×2 (08:27→15:57)
[2022-02-09] MEDS: IRON SUCROSE COMPLEX 200 MG in SODIUM CHLORIDE 0.9% IV 50 ML 120 MG IVPB (09:47)
[2022-02-09 20:20] VITALS: BP 125/76; PULSE 88; RESP 18; TEMP 36.9; O2SAT 97
[2022-02-10] MEDS: ACETAMINOPHEN 325 MG TABLET 650 MG PO ×2 (00:09→08:42)
--- NOTE | 2022-02-10 05:54 | PM.OBPNVD ---
OB - PN: Subj Subjective Date/time seen: 02/10/22 05:54 Patient comments: no complaints baby status: doing well Narrative: Pt sleeping. Home today. OB - PN: Obj Data Labs 02/09/22 04:52 OB - PN A/P Plan day: 2 Plan: routine care and discharge home Time Spent With Patient Time: Total time spent is greater than 50% in coordination of care (as documented) at patient's floor/unit and/or counseling patient: Time with patient: less than 15 minutes Exam Narrative: NAD abdomen soft, nontender, fundus firm below the umbilicus Extremities nontender, 1+ edema
[2022-02-10] MEDS: POLYSACCHARIDE IRON COMPLEX 150 MG CAPSULE PO (08:40)
[2022-02-10] MEDS: SERTRALINE HCL 50 MG TABLET PO (08:41)
[2022-02-10] MEDS: DOCUSATE SODIUM 100 MG CAPSULE PO (08:41)
[2022-02-10] MEDS: MULTIVIT/MIN/PREN/FOL AC/IRON TABLET 1 TAB PO (08:41)
[2022-02-10 08:42] VITALS: BP 113/71; PULSE 86; RESP 16; TEMP 36.6; O2SAT 96
[2022-02-10] MEDS: IBUPROFEN 600 MG TABLET PO (08:42)
--- NOTE | 2022-02-10 15:00 | PC.NURSE ---
1000 Patient viewed the discharge video Mother & Baby Care, The First Two Weeks . Patient was given the opportunity and encouraged to ask questions. Patient verbalized understanding of information shared and has been given the mother/baby guide for home reference.
== END 2022-02-10 14:40 | disposition home or self-care (01) | DRG 560 ==
LOC: ANHLDR 05:16 → ANHOB2 02-09 08:19 → ANHLDR 02-12 08:55 → ANHOB2 02-12 08:55
PROVIDERS: Admitting Provider Obstetrics & Gynecology; PCP Advanced Practice Midwife; Visit Provider Obstetrics & Gynecology
DX: O99.02 Anemia complicating childbirth (principal); O99.344 Other mental disorders complicating childbirth; D64.9 Anemia, unspecified; Z37.0 Single live birth; Z3A.38 38 weeks gestation of pregnancy; O70.1 Second degree perineal laceration during delivery; F41.8 Other specified anxiety disorders
CPT/HCPCS: 36415; 85014; 85018; 85025; 86592; 86850; 86900; 86901; A9270; J1756; J2405; J2590; J2795; J3010; J7120

== ENCOUNTER 2022-04-03 17:26 | Outpatient (CLI) | payer OTHER, SELFPAY ==
--- NOTE | ~2022-04-03 | US_ITS ---
EXAMINATION: US pelvic complete w TV DATE: 04/03/2022 18:15 INDICATION: Acute pelvic pain TECHNIQUE: Multiple transabdominal and endovaginal sonographic images of the pelvis were obtained. COMPARISON: None. FINDINGS: The uterus measures 7.9 x 4.1 x 6.5 cm. The endometrial complex measures <2 mm in thickness. T-shape d linear echogenic and shadowing IUD in expected position within the endometrial canal. The right ova ry measures 4.3 x 2.8 x 2.7 cm. Vascular flow identified in the right ovary on color Doppler. 1.1 cm anechoic cyst/follicle in the right ovary. The left ovary is not visualized. There is no free fluid i n the pelvis. IMPRESSION: 1. IUD in expected position within the endometrial canal. Otherwise unremarkable pelvic ultrasound. Reviewed, dictated and finalized at location A. [place] VENDOR IMPRESSION: 1. IUD in expected position within the endometrial canal. Otherwise unremarkabl e pelvic ultrasound.
== END 2022-04-03 17:27 | disposition home or self-care (01) ==
LOC: ANHIMG 17:27
PROVIDERS: PCP Advanced Practice Midwife; Visit Provider Advanced Practice Midwife
DX: R10.2 Pelvic and perineal pain (principal); Z97.5 Presence of (intrauterine) contraceptive device
CPT/HCPCS: 76830; 76856

== ENCOUNTER 2022-04-24 18:04 | Outpatient (CLI) | payer OTHER, SELFPAY ==
--- NOTE | ~2022-04-24 | XR_ITS ---
EXAMINATION: XR chest 2V DATE: 04/24/2022 18:18 INDICATION: Tuberculosis screening TECHNIQUE: Frontal and lateral views of the chest are obtained COMPARISON: 06/17/2020 FINDINGS: The lungs are free of acute opacities. No pleural effusion or pneumothorax. The cardiomedia stinal silhouette is normal. IMPRESSION: 1. No acute cardiopulmonary abnormality. Reviewed, dictated and finalized at location F. SCOPE TECHNICIAN
== END 2022-04-24 18:05 | disposition home or self-care (01) ==
LOC: ANHIMG 18:05
PROVIDERS: PCP Advanced Practice Midwife; Visit Provider Advanced Practice Midwife
DX: Z11.7 Encounter for testing for latent tuberculosis infection (principal)
CPT/HCPCS: 71046

== ENCOUNTER 2023-03-05 10:01 | Outpatient (CLI) | payer OTHER, SELFPAY ==
[2023-03-05 10:23] LABS: Hematocrit 40.6 % (37.0-47.0); Hemoglobin 12.3 g/dL (12.0-15.0); Mean Corpuscular HGB Conc 30.3 g/dl (32-36); Mean Corpuscular Hemoglobin 26.1 pg (26-34); Mean Corpuscular Volume 86.2 fl (80-100); Mean Platelet Volume 9.3 fl (7.4-10.4); Platelet Count Result 239 k/mm3 (150-375); Red Blood Count 4.71 M/mm3 (4.2-5.4); Red Cell Distribution Width 12.1 % (11.5-14.5)
[2023-03-05 10:42] LABS: Alanine Aminotransferase 15 U/L (6-35); Albumin Level 4.3 g/dL (3.5-5.1); Alkaline Phosphatase 76 U/L (38-126); Anion Gap 8 mmol/L (8-16); Aspartate Amino Transferase 20 U/L (14-36); Bilirubin,Total 0.8 mg/dL (0.2-1.3); Blood Urea Nitrogen 13 mg/dL (7-17); CRP < 0.5 mg/dL (<1.0); Calcium 9.5 mg/dL (8.4-10.2); Carbon Dioxide 29 mmol/L (22-30); Chloride 105 mmol/L (98-107); Estimated Glomerular Filt Rate > 60; Glucose 80 mg/dL (65-110); Potassium 4.1 mmol/L (3.4-5.0); Sodium 142 mmol/L (137-145)
[2023-03-05 11:16] LABS: Erythrocyte Sedimentation Rate 13 mm/hr (0-20)
[2023-03-08 09:18] LABS: Immunoglobulin A 186 mg/dL (47-310); TTG IGA AB <1.0 U/mL (<15.0)
== END 2023-03-05 10:02 | disposition home or self-care (01) ==
LOC: ANHLAB 10:03
PROVIDERS: Visit Provider Nurse Practitioner
DX: R10.9 Unspecified abdominal pain (principal); R19.4 Change in bowel habit; R63.4 Abnormal weight loss
CPT/HCPCS: 36415; 80053; 82784; 84443; 85027; 85652; 86140; 86364

== ENCOUNTER 2023-03-07 06:56 | Outpatient (CLI) | payer OTHER, SELFPAY ==
--- NOTE | ~2023-03-07 | CT_ITS ---
CT of the Abdomen and Pelvis: Indication: Abdominal pain Technique: 2.5 mm axial scans were obtained through the abdomen and pelvis following intravenous adm inistration of 100 cc of Omnipaque 350. Dose reduction technique was used on this scan by utilizing a utomated exposure control and iterative reconstruction technique. The dose-length product (DLP) was 1 92.89 mGy-cm. Findings: Scans through the lung bases demonstrate minimal left pleural effusion. The liver, spleen, pancreas, adrenals and kidneys are within normal limits. Cholecystectomy clips are present. No evidence of aortic aneurysm. No lymphadenopathy. No bowel obstruction or bowel wall thickening. There is no evidence to suggest acute appendicitis. Ti ny fat-containing umbilical hernia noted. Images through the pelvis were performed. Urinary bladder unremarkable. IUD in place. No adnexal mass seen. No ascites. Impression: Minimal left pleural effusion. Tiny fat-containing umbilical hernia. IUD. Reviewed, dictated and finalized at [facility]. SETTING OUT MACHINE OPERATOR Impression: Minimal left pleural effusion. Tiny fat-containing umbilical hernia. IUD.
== END 2023-03-07 06:57 | disposition home or self-care (01) ==
PROVIDERS: PCP Nurse Practitioner; Visit Provider Nurse Practitioner
DX: R63.4 Abnormal weight loss (principal); R19.4 Change in bowel habit; R10.9 Unspecified abdominal pain; K42.9 Umbilical hernia without obstruction or gangrene; Z97.5 Presence of (intrauterine) contraceptive device
CPT/HCPCS: 74177; Q9967

== ENCOUNTER 2023-03-19 01:40 | Day surgery (SDC) | payer OTHER, SELFPAY ==
[2023-03-07 10:52] VITALS: BMI 17.7
--- NOTE | 2023-03-17 09:37 | SUR.PREOP ---
Patient called regarding upcoming procedure. Message left on pt's voicemail regarding appointment times.
[2023-03-19 07:57] VITALS: BP 102/77; PULSE 101; RESP 18; TEMP 36.2; O2SAT 98
[2023-03-19] MEDS: LACTATED RINGERS 1,000 ML 150 ML IV CONT (08:05)
--- NOTE | 2023-03-19 08:25 | P.PNAN_ITS ---
Anes - Initial Pre Proc Eval Procedure: Operation Date: 03/19/23 09:00 Proposed Procedures p Colonoscopy - Ok Arroyo MD Date/Time: 03/19/23 08:25 Surgeon: Ok Arroyo MD Pre Op Diagnosis: abnormal weight loss, change in bowel habit, Patient Data Age: 22 Gender: F Height: 1.73 m Weight: 50.9 kg Last Vital Signs Temp 97.1 F L 03/19/23 07:57 Pulse 101 H 03/19/23 07:57 Resp 18 03/19/23 07:57 BP 102/77 03/19/23 07:57 Pulse Ox 98 03/19/23 07:57 O2 Del Method Room Air 03/19/23 07:57 Allergies Allergy/AdvReac Type Severity Reaction Status Date / Time latex Allergy Mild Rash Verified 03/19/23 07:55 mushroom Allergy Mild Rash Verified 03/19/23 07:55 strawberry Allergy Mild Rash Verified 03/19/23 07:55 [place] Allergy Unknown Rash Uncoded 03/19/23 07:55 Home Medications Medication Instructions Recorded Confirmed Type ondansetron 4 mg disintegrating 4 mg PO Q6H PRN nausea and 01/12/22 03/07/23 Rx tablet vomiting #14 tabs cyclobenzaprine 5 mg tablet 5 mg PO TID PRN Muscle Spasm 03/07/23 03/07/23 History dicyclomine 10 mg capsule 10 - 20 mg PO TID PRN Abdominal 03/07/23 03/07/23 History Pain Patient hx anesthesia problems: none Family hx anesthesia problems: none Results Review: All pre-operative results and documents have been reviewed as part of the pre- operative evaluation. [facility] Past Medical History Medical History (Updated 03/05/23 @ 09:24 by Sonia Candelaria APRN) Abdominal pain Altered bowel habits Anxiety Depression Eosinophilic esophagitis Underweight Weight loss Family History Family History Mother Thyroid cancer Social History Social History (System 02/26/23 @ 13:22 by Dona Wilhelm) Smoking status: Never smoker Alcohol intake: current Substance use: never Substance use type: does not use Lack of Transportation: No Lack of Food: Never True Current Housing: I Have Housing Concerned About Future Housing: No Difficulty Paying Gas/Electric Bills: No Difficulty Paying for Meds: No Currently Unemployed: No Education: High School Diploma/GED Difficulty w/ Childcare or Family Care: No Living arrangements: with family Occupation/Education: occupation Additional occupation/education comments: teacher's aid Gender identity (if verbalized by the patient): Female Spiritual care concerns: No Anes - Eval Final PreProcedure Day of Procedure 03/19/23 08:25 Patient weight: normal Heart: regular rate and rhythm Lungs: clear to auscultation Airway: Mallampati scale class II Neurological: alert and oriented Last oral intake: >/= 8 hours ASA classification: II Emergent: no Anesthetic plan: proceed Anesthesia type and monitoring: general GIVS and standard monitoring Results Review: All pre-operative results and documents have been reviewed as part of the pre- operative evaluation. Informed Consent: The patient's anesthetic plan and its attendant risks and benefits were discussed with the patient/family/POA. Questions were solicited and answers provided to the satisfaction of the patient/family/POA.
--- NOTE | 2023-03-19 08:27 | WPDHPUPDATE1 ---
History and Physical Update Update Date/Time: 03/19/23 08:27 History and Physical has been reviewed, including an updated exam of the patient. There are NO changes in the patient's condition. Risks, benefits, and alternatives have been discussed and questions answered. Patient agrees to proceed with procedure.
[2023-03-19 08:51] VITALS: BP 91/57; PULSE 73; RESP 16; O2SAT 100
[2023-03-19 09:01] VITALS: BP 96/65; PULSE 87; RESP 12; O2SAT 100
[2023-03-19 09:11] VITALS: BP 102/66; PULSE 64; RESP 14; O2SAT 100
== END 2023-03-19 09:19 | disposition home or self-care (01) ==
PROVIDERS: PCP Nurse Practitioner; Visit Provider Internal Medicine Gastroenterology
PROC: 0DJD8ZZ Inspection of Lower Intestinal Tract, Via Natural or Artificial Opening Endoscopic (ICD-10-PCS; CPT 45378; principal; 2023-03-19 09:00)
DX: K64.8 Other hemorrhoids (principal)
CPT/HCPCS: 45378; J2704; J7120

== ENCOUNTER 2023-04-17 19:16 | Emergency (ER) | payer OTHER, SELFPAY ==
--- NOTE | ~2023-04-17 | XR_ITS ---
EXAMINATION: XR chest 2V DATE: 04/17/2023 20:42 INDICATION: Upper respiratory infection. Cough. Fever. TECHNIQUE: Frontal and lateral views of the chest were obtained on 3 radiographs. COMPARISON: Chest 2 views 04/24/2022 FINDINGS: There is no pneumonia, pleural effusion, or pneumothorax. The heart size is normal. IMPRESSION: 1. No acute cardiopulmonary disease. Reviewed, dictated and finalized at location E. IVER
[2023-04-17 19:23] VITALS: BP 123/70; PULSE 93; RESP 20; TEMP 36.9; O2SAT 100
--- NOTE | 2023-04-17 20:53 | ECG_ITS ---
Measurements Intervals [place] Rate: 95 P: 75 [place]: 171 QRS: -52 QRSD: 89 T: 75 QT: 330 QTc: 415 Interpretive Statements SINUS RHYTHM POSSIBLE LEFT ATRIAL ENLARGEMENT [-0.1mV P WAVE IN V1/V2] MARKED LEFT AXIS DEVIATION [QRS AXIS < -30] INCOMPLETE RIGHT BUNDLE BRANCH BLOCK ABNORMAL ECG NO PREVIOUS ECG AVAILABLE FOR COMPARISON Electronically Signed On 04-18-2023 12:32:43 GLOBAL COMPENSATION DIRECTOR by Adarsh Soares M.D.
--- NOTE | 2023-04-17 20:53 | ED.URI ---
HPI - URI/Sore Throat General Chief Complaint: Upper Respiratory Infection Stated Complaint: lingering cough Time Seen by Provider: 04/17/23 20:30 Source: patient and old records reviewed Mode of arrival: ambulatory Limitations: no limitations History of Present Illness HPI Narrative: Patient is a 22-year-old female who presents the ED with report of cough. Patient reports she has had a prolonged cough for the last 1 month. She has been evaluated for this several times, states she received a CT scan of her abdomen/pelvis in February for endometriosis and this showed a minimal L sided pleural effusion. She expresses concern for this. Patient reports she has tried several different therapies for her cough without improvement. Was seen at an outside hospital on Friday, tested negative for viral swabs, prescribed Tessalon perles. Reports chest pain associated with coughing, intermittent shortness of breath, as well as subjective fevers and chills over the last couple of days. Related Data Home Medications Medication Instructions Recorded Confirmed cyclobenzaprine 5 mg tablet 5 mg PO TID PRN Muscle Spasm 03/07/23 03/07/23 dicyclomine 10 mg capsule 10 - 20 mg PO TID PRN Abdominal 03/07/23 03/07/23 Pain Allergies Allergy/AdvReac Type Severity Reaction Status Date / Time latex Allergy Mild Rash Verified 03/19/23 07:55 mushroom Allergy Mild Rash Verified 03/19/23 07:55 strawberry Allergy Mild Rash Verified 03/19/23 07:55 [place] Allergy Unknown Rash Uncoded 03/19/23 07:55 Review of Systems Review of Systems: CONSTITUTIONAL: Reports chills, subjective fevers. ENT: See HPI. CARDIOVASCULAR: See HPI. RESPIRATORY: See HPI. GASTROINTESTINAL: Denies abdominal pain, nausea, vomiting. All systems reviewed & are unremarkable except as noted in HPI and below PMFSH Past Medical History Medical History Abdominal pain Altered bowel habits Anxiety Depression Eosinophilic esophagitis Underweight Weight loss Family History Family History Mother Thyroid cancer Social History Social History Smoking status: Never smoker Alcohol intake: current Substance use: never Substance use type: does not use Lack of Transportation: No Lack of Food: Never True Current Housing: I Have Housing Concerned About Future Housing: No Difficulty Paying Gas/Electric Bills: No Difficulty Paying for Meds: No Currently Unemployed: No Education: High School Diploma/GED Difficulty w/ Childcare or Family Care: No Living arrangements: with family Occupation/Education: occupation Additional occupation/education comments: teacher's aid Gender identity (if verbalized by the patient): Female Spiritual care concerns: No Exam Narrative: GENERAL: Well appearing, thin, non-toxic, in no acute distress. HEAD: Normocephalic, atraumatic. RESPIRATORY: Airway patent, respirations nonlabored. Clear to auscultation bilaterally, no rales, rhonchi, wheezing. No focal lungs sounds. CARDIOVASCULAR: Regular rate and rhythm without murmurs, rubs, or gallops. MUSCULOSKELETAL: Moves all extremities. No gross deformities. No lower extremity edema. SKIN: Warm, dry, normal color. NEURO: A&O X3. Speech clear. PSYCHIATRIC: Appropriate mood and affect. Normal interaction. Course Vital Signs Vital signs: Vital Signs Temperature 98.5 F 04/17/23 19:23 Pulse Rate 93 04/17/23 19:23 Respiratory Rate 20 04/17/23 19:23 Blood Pressure 123/70 04/17/23 19:23 Pulse Oximetry 100 04/17/23 19:23 Oxygen Delivery Room Air 04/17/23 19:23 Temperature 98.5 F 04/17/23 19:23 Pulse Rate 87 04/18/23 01:49 Respiratory Rate 18 04/18/23 01:49 Blood Pressure 126/86 04/18/23 01:49 Pulse Oximetry 98 04/18/23 01:49 Oxygen Delivery Ro
[2023-04-17 21:29] LABS: Basophils Absolute Auto 0.1 K/mm3 (0.0-0.1); Basophils Percent Auto 0.5 % (0.2-1.2); Eosinophils Absolute Auto 0.2 K/mm3 (0-0.3); Eosinophils Percent Auto 2.3 % (0-4.4); Hematocrit 37.3 % (37.0-47.0); Hemoglobin 11.2 g/dL (12.0-15.0); Immature Granulocyte Absolute 0.04 K/mm3 (0.00-0.031); Immature Granulocyte Percent A 0.4 % (0-0.5); Lymphocytes Absolute Auto 1.49 K/mm3 (0.9-3.2); Lymphocytes Percent Auto 15.4 % (18.3-44.2); Mean Corpuscular Hemoglobin 26.1 pg (26-34); Mean Corpuscular Volume 86.9 fl (80-100); Mean Platelet Volume 9.5 fl (7.4-10.4); Monocytes Absolute Auto 0.5 K/mm3 (0.1-0.6); Monocytes Percent Auto 4.6 % (2.6-8.5); Neutrophils Absolute Auto 7.5 K/mm3 (1.3-6.7); Neutrophils Percent Auto 76.8 % (45.5-73.1); Platelet Count Result 260 k/mm3 (150-375); Red Blood Count 4.29 M/mm3 (4.2-5.4); Red Cell Distribution Width 12.3 % (11.5-14.5); White Blood Count 9.7 K/mm3 (4.5-10.0)
[2023-04-17 21:40] LABS: Alanine Aminotransferase 14 U/L (6-35); Albumin Level 4.5 g/dL (3.5-5.1); Alkaline Phosphatase 82 U/L (38-126); Anion Gap 7 mmol/L (8-16); Aspartate Amino Transferase 21 U/L (14-36); Bilirubin,Total 0.4 mg/dL (0.2-1.3); Blood Urea Nitrogen 14 mg/dL (7-17); Calcium 9.6 mg/dL (8.4-10.2); Carbon Dioxide 28 mmol/L (22-30); Chloride 105 mmol/L (98-107); Estimated CRCL calculation 90 ml/min; Estimated Glomerular Filt Rate > 60; Glucose 97 mg/dL (65-110); Sodium 140 mmol/L (137-145)
[2023-04-17 21:44] LABS: D Dimer < 0.27 ug/mL (<0.48)
[2023-04-17 21:52] LABS: Troponin I 0.016 ng/mL (0.000-0.034)
[2023-04-17 22:05] LABS: Influenza A QL RT-PCR Negative (Negative); Influenza B QL RT-PCR Negative (Negative); RSV RNA, RT-PCR Negative (Negative); SARS-CoV-2 RNA PCR Negative (Negative)
--- NOTE | 2023-04-18 00:21 | ECG_ITS ---
Measurements Intervals [place] Rate: 95 P: 72 [place]: 175 QRS: -66 QRSD: 86 T: 71 QT: 328 QTc: 414 Interpretive Statements SINUS RHYTHM POSSIBLE LEFT ATRIAL ENLARGEMENT [-0.1mV P-WAVE IN V1/V2] LEFT AXIS DEVIATION [QRS AXIS < -30] INCOMPLETE RIGHT BUNDLE BRANCH BLOCK ABNORMAL ECG ] COMPARED TO ECG 04/17/2023 21:22:45 NO DIFFERENCE Electronically Signed On 04-18-2023 12:35:37 MEDICAL OFFICE ADMINISTRATOR by Adarsh Soares M.D.
[2023-04-18 00:28] VITALS: BP 115/87; PULSE 94; RESP 16; O2SAT 97
[2023-04-18 00:59] LABS: Troponin I 0.014 ng/mL (0.000-0.034)
[2023-04-18 01:49] VITALS: BP 126/86; PULSE 87; RESP 18; O2SAT 98
== END 2023-04-18 01:50 | disposition home or self-care (01) ==
LOC: ANHED 21:49
PROVIDERS: Emergency Provider Physician Assistant; PCP Nurse Practitioner
DX: J40 Bronchitis, not specified as acute or chronic (principal); J06.9 Acute upper respiratory infection, unspecified; R05.2 Subacute cough; Z20.822 Contact with and (suspected) exposure to COVID-19; K20.0 Eosinophilic esophagitis; R94.31 Abnormal electrocardiogram [ECG] [EKG]; I45.10 Unspecified right bundle-branch block; R63.6 Underweight; Z68.1 Body mass index [BMI] 19.9 or less, adult
CPT/HCPCS: 36415; 71046; 80053; 84484; 85025; 85380; 87637; 93005; 99284

== ENCOUNTER 2023-04-19 16:43 | Emergency (ER) | payer OTHER, SELFPAY ==
[2023-04-19 16:51] VITALS: BP 119/81; PULSE 103; RESP 18; TEMP 36.4; O2SAT 100
== END 2023-04-19 20:14 | disposition left against medical advice (07) ==
LOC: ANHED 18:24
DX: R07.81 Pleurodynia (principal)
CPT/HCPCS: 99199

== ENCOUNTER 2023-05-07 02:25 | Day surgery (SDC) | payer OTHER, SELFPAY ==
[2023-04-30 14:15] VITALS: BMI 17.6
--- NOTE | 2023-04-30 14:19 | PC.NURSE ---
Report to the Outpatient Waiting Room, entrance under the green pavilion located off [facility], at time 1300 on date 05/07/23. Planned Procedure Time: 1500. Time changes happen often and if your time is changed the preop area will call you the afternoon before. - You and your visitor will be asked to self-screen and do not enter if you have any COVID symptoms. - A mask is optional within the hospital at this time. Patients may have clear liquids (water, carbonated beverages, clear teas, apple juice) until 3 hours prior to surgery with a maximum of 20 ounces. - No food from midnight until time of surgery Take the following medications with a SIP of water the morning of surgery: INHALER AND CYCLOBENZAPRINE IF NEEDED DO NOT STOP ANY OF YOUR OTHER PRESCRIPTION MEDICATIONS PRIOR TO SURGERY ?EXCEPT THE FOLLOWING Medications to discontinue per physician: N/A Date to take last dose: N/A Please no make-up, nail upper sorbian, hairspray, perfume, deodorant, or body powder the day of surgery. No jewelry (including any body piercings) or valuables the day of surgery, leave them at home. Please take a shower or bath the night before, or the morning of, surgery with an antibacterial soap. Wear comfortable, loose fitting clothing. - Jewelry must be removed prior to entering the operating room. Rings and piercings that are not removed may be cut off. - The hospital will not accept responsibility for valuables. - Please leave all valuables, including medications, at home the day of surgery. If you are going home after surgery, a licensed laborer driver must drive you home. - NO public transportation without another adult if you receive anesthesia. - We recommend that an adult stay with you for 24 hours following discharge. - We also recommend that you do not drive, make important decision, drink alcoholic beverages, or take any drugs that were not prescribed by your health care provider for at least 24 hours after your discharge time. Follow any additional instructions given to you from your surgeon. If you or anyone in your household have experienced Covid symptoms in the past week, please notify your surgeon or the nurse liaison at the phone number below for possible testing. Telephone instructions given to PT - YANG VELÁZQUEZ and asked if any additional questions and then verbalized understanding. Patient advised to call surgeon office or pre surgery nurse liaison [phone] if any additional questions.
[2023-05-07] VITALS (8 sets, daily range): BP systolic 98–120; BP diastolic 65–71; PULSE 55–67; RESP 14–20; TEMP 36.4; O2SAT 94–100
--- NOTE | 2023-05-07 08:33 | WPDANESEPPF ---
Anes - Initial Pre Proc Eval Procedure: Operation Date: 05/07/23 15:00 Proposed Procedures p Diagnostic Laparoscopy - Gianna Kemp MD Date/Time: 05/07/23 08:33 Surgeon: Gianna Kemp MD Pre Op Diagnosis: Pelvic Pain Patient Data Age: 22 Gender: F Height: 1.73 m Weight: 52.65 kg Allergies Allergy/AdvReac Type Severity Reaction Status Date / Time latex Allergy Mild Rash Verified 04/30/23 14:14 mushroom Allergy Mild Rash Verified 04/30/23 14:14 strawberry Allergy Mild Rash Verified 04/30/23 14:14 [place] Allergy Unknown Rash Uncoded 04/30/23 14:14 Home Medications Medication Instructions Recorded Confirmed Type cyclobenzaprine 5 mg tablet 5 mg PO TID PRN Muscle Spasm 03/07/23 04/30/23 History albuterol sulfate 90 mcg/actuation 2 puff inhalation Q6H PRN Wheezing 04/30/23 04/30/23 History aerosol inhaler Patient hx anesthesia problems: none Family hx anesthesia problems: none Results Review: All pre-operative results and documents have been reviewed as part of the pre-operative evaluation. [facility] Past Medical History Medical History (Updated 05/07/23 @ 08:33 by Severo Castellano DO) Abdominal pain Altered bowel habits Anxiety Depression Eosinophilic esophagitis Migraine Underweight Weight loss Family History Family History Mother Thyroid cancer Social History Social History Smoking status: Never smoker Alcohol intake: never Substance use: never Substance use type: does not use Lack of Transportation: No Lack of Food: Never True Current Housing: I Have Housing Concerned About Future Housing: No Difficulty Paying Gas/Electric Bills: No Difficulty Paying for Meds: No Currently Unemployed: No Education: High School Diploma/GED Difficulty w/ Childcare or Family Care: No Living arrangements: with family Occupation/Education: occupation Additional occupation/education comments: teacher's aid Gender identity (if verbalized by the patient): Female Spiritual care concerns: No Anes - Eval Final PreProcedure Day of Procedure 05/07/23 08:33 Patient weight: normal Heart: regular rate and rhythm Lungs: clear to auscultation Airway: Mallampati scale class II Neurological: alert and oriented Last oral intake: >/= 8 hours ASA classification: II Emergent: no Anesthetic plan: proceed Anesthesia type and monitoring: general ETT and standard monitoring Results Review: All pre-operative results and documents have been reviewed as part of the pre-operative evaluation. Informed Consent: The patient's anesthetic plan and its attendant risks and benefits were discussed with the patient/family/POA. Questions were solicited and answers provided to the satisfaction of the patient/family/POA.
[2023-05-07] MEDS: LACTATED RINGERS 1,000 ML 30 ML IV CONT ×2 (14:20→17:36)
[2023-05-07] MEDS: KETOROLAC 15 MG/ML VIAL (*BKC) IV PUSH (14:21)
[2023-05-07] MEDS: SCOPOLAMINE 1 MG PATCH 1 PATCH TRANSDERM (14:21)
[2023-05-07] MEDS: ACETAMINOPHEN 500 MG TABLET 1000 MG PO (14:21)
--- NOTE | 2023-05-07 15:59 | WPDHPUPDATE1 ---
History and Physical Update Update Date/Time: 05/07/23 15:59 History and Physical has been reviewed, including an updated exam of the patient. There are NO changes in the patient's condition. Risks, benefits, and alternatives have been discussed and questions answered. Patient agrees to proceed with procedure.
--- NOTE | 2023-05-07 17:22 | P.OP_ITS ---
Procedure Note - Detailed Date of Procedure 05/07/23 Pre-op Diagnosis Pelvic Pain Post-op Diagnosis Same Procedure Performed Diagnostic laparoscopy Surgeon Gianna Kemp MD Anesthesia General Indications Pelvic pain Findings normal uterus, tubes, ovaries, extensive vascularity in the bilateral pelvic wall peritoneum, uncertain if this is normal because she is so thin or an inflammatory response or very fine endometriosis that is not visible. No endometriosis lesions Description of Procedure The patient was taken to the operating room. She was prepped and draped in the dorsal lithotomy position after induction general anesthesia. A 5 mm incision was made with a scalpel on the abdominal skin in the left upper quadrant of the abdomen. A 5 mm trocar was inserted into the intra-abdominal cavity under dir ect visualization the scope. In the same fashion a 5 mm left lower quadrant trocar was inserted and a 5 mm infraumbilical trocar was inserted. peritoneal biopsy on the right pelvic side was performed. The perineum was tented upward away from the ureter. It was entered with sharp dissection. A 3 cm in diameter circular peritoneal biopsy was performed. No cautery was required to make it hemostatic the cutting current was used with the transection of the peritoneum around the circumferential area. The pneumoperitoneum was reduced. The trocars were removed. Skin was closed with subcuticular 4 micro. The patient's incisions were covered with Dermabond. She was taken recovery room in stable condition. Sponge lap and needle counts were correct x2. Estimated Blood Loss 5 Complications No immediate complications Condition Stable Disposition Same day
[2023-05-07] MEDS: fentaNYL CITRATE INJ (*CRX) 100 MCG/2 ML VIAL 25 MCG IV PUSH ×2 (17:38→17:46)
[2023-05-07] MEDS: oxyCODONE HCL (*CRX) 5 MG TAB IR PO (18:31)
--- NOTE | 2023-05-07 19:09 | SUR.PHASEII ---
Vital signs stable, IV removed. Patient dressed and waiting for ride home.
== END 2023-05-07 19:43 | disposition home or self-care (01) ==
PROVIDERS: Visit Provider Obstetrics & Gynecology
PROC: (CPT 49320; principal; 2023-05-07 15:00)
DX: R10.2 Pelvic and perineal pain (principal)
CPT/HCPCS: 49321; 88305; A9270; J1100; J1885; J2250; J2405; J2704; J3010; J7030; J7120

== ENCOUNTER 2024-06-26 19:37 | Emergency (ER) | payer OTHER, SELFPAY ==
[2024-06-26] VITALS (13 sets, daily range): BP systolic 105–123; BP diastolic 71–85; PULSE 57–100; RESP 13–21; TEMP 36.1; O2SAT 95–100
--- OUTSIDE RECORDS SUMMARY | 2024-06-26 19:39 | XMS_ITS | Clinical Summary ---
Author Organization [facility] Search to Phone Address [address] [place] [address] Care Team Providers Care Marketing Traffic Coordinator Name Role Phone Unavailable Primary Care Provider Unavailabl e Source Comments [facility] Search to Phone,non-owned Affiliates and Associated Physician Practices is amultiple site organization consisting of ambulatory clinics and hospital sitesin [place], [place], [place] and [place]. This disclosure is being madepursuant to the Care Everywhere program and may not contain all information available regarding this patient. Last updated 17.[facility] Search to Phone Allergies Active Allergy Reactions Criticality Noted Date Comments Latex Rash Low 10/23/2012 Mushroom Extract Complex Urticaria 10/23/2012 [place] Urticaria Medium 10/23/2012 Medications * Be aware that medications may not be up to date on this document. Alwaysverify current medications with the patient. 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 Normal RUQ abdominal ultrasound in April,. Scoliosis 11/21/2014 Back pain 11/21/2014 Patellofemoral syndrome, bilateral 06/22/2013 Thyromegaly 05/27/2013 Comments Yes Resolved Problems Problem Noted Date Diagnosed Date Resolved Date Diarrhea 06/06/2015 07/04/2015 Family History Medical History Relation Name Comments Cholelithiasis Maternal Aunt IBS Maternal Aunt Colon Cancer at or under age 50 Maternal Grandfather IBS Maternal Grandfather Cholelithiasis Maternal Uncle IBS Maternal Uncle Stomach ulcers Maternal Uncle Cholelithiasis Mother GERD - Gastroesophageal Reflux Disease Mother IBS Mother Other - Defects Mother Celiac Disease Neg Hx Crohn's Disease Neg Hx Ulcerative Colitis Neg Hx Relation Name Status Comments Maternal Aunt Maternal Grandfather Maternal Uncle Mother Alive Social History Tobacco Use Types Packs/Day Years Used Date Smoking Tobacco: Never Smokeless Tobacco: Never Alcohol Use Standard Drinks/Week Comments No 0 (1 standard drink = 0.6 oz pur e alcohol) Comments Yes Sex and Gender Information Value Date Recorded Sex Assigned at Not on file 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 Gender Identity Not on file Sexual Orientation Not on file Last Filed Vital Signs Vital Sign Reading Time Taken Comments Blood Pressure 118/68 06/12/2021 3:08 PM CDT Pulse 86 05/21/2016 11:34 PM CDT Temperature 36.9 C (98.4 F) 05/01/2021 2:50 PM NETBACKUP ADMINISTRATOR Respiratory Rate 16 05/21/2016 11:34 PM CDT Oxygen Saturation 100% 05/21/2016 11:34 PM CDT Inhaled Oxygen Concentration 100% 09/06/2015 1 0:45 AM CDT Weight 58.2 kg (128 lb 6.4 oz) 06/12/2021 3:08 P M CDT Height 172.7 cm (5' 8 ) 06/12/2021 3:08 PM CDT Body Mass Index 19.52 06/12/2021 3:08 PM CDT Plan of Treatment Health Maintenance Due Date Last Done Comments PAP SMEAR 1998 HIV SCREENING 2013 HPV VACCINE (1 - 3-dose series) 2013 CHLAMYDIA/GONORRHEA SCREENING 2014 HEPATITIS C SCREENING 08/26/2016 DTAP/TDAP/TD VACCINES (1 - Tdap) 2017 HEPATITIS B VACCINE (1 of 3 - 19+ 3-dose series) 2017 COVID-19 VACCINE (1 - 2023-2 5 season) 2023 DEPRESSION SCREENING 02/25/2024 INFLUENZA VACCINE (Season Ended) 2024 ZOSTER VACCINE (1 of 2) 2048 Respiratory Syncytial Virus (RSV) Vaccine Pt: or over 60 yrs (1 - 1-dose 75+ series) 2073 HIB VACCINE Aged Out No longer eligi ble based on patient's age to complete this topic MENINGOCOCCAL (Group B) VACC INE SHARED DECISION-MAKING Aged Out No longer eligibl e based on patient's age to complete this topic MENINGOCOCCAL GROUPS A/C/Y/W VACCINE Aged Out No longer eligible b ased on patient's age to complete this topic PNEUMOCOCCAL VACCINE Aged Out No long er eligible based on patient's age to complete this topic Insurance [facility] SELF PAY NO INSURANCE Member Subscriber Plan / Payer (Ef fective for All Dates) Name:Yang Velázquez Member ID:Not on file Relation to Subscriber:Not on file Name:YANG VELÁZQUEZ Subscriber ID:Not on file Address: [address] [place] [address] Payer ID:Not on file Group ID:Not on file Type:Self Pay Address: [place], [place] [facility] SELF PAY NO INSURANCE Member Subscriber Plan / Payer (Ef fective for All Dates) Name:Yang Velázquez Member ID:Not on file Relation to Subscriber:Not on file Name:YANG VELÁZQUEZ Subscriber ID:Not on file Address: [address] [place] [address] Payer ID:Not on file Group ID:Not on file Type:Self Pay Address: [place], [place] [facility] SELF PAY NO INSURANCE Member Subscriber Plan / Payer (Ef fective for All Dates) Name:Yang Velázquez Member ID:Not on file Relation to Subscriber:Not on file Name:YANG VELÁZQUEZ Subscriber ID:Not on file Address: [address] [place] [address] Payer ID:Not on file Group ID:Not on file Type:Self Pay Address: [place], [place]
--- OUTSIDE RECORDS SUMMARY | 2024-06-26 19:39 | XMS_ITS | Patient Health Record ---
Author Organization [facility] Address [address] [place] [address] Support Name Relationship Address Phone nathan hcery Emergency Contact Unknown [phone] Melani Chery Guarantor Unknown [phone] Reason For Referral No Information Social History Tobacco Use: Social History Observation Description Date Details (start date - stop date) Never Smoker NA - NA Tobacco Use/Smoking Question Answer Notes Are you a nonsmoker Plan Of Treatment No Information Medical (General) History Surgical History Surgery Date(Month/Year)
--- OUTSIDE RECORDS SUMMARY | 2024-06-26 19:39 | XMS_ITS | Clinical Summary ---
Author Organization [facility] Address [address] [place] [id number] Care Team Providers Care Press Operator Assistant Name Role Phone No, Physician Primary Care Provider [phone] Allergies Active Allergy Reactions Criticality Noted Date Comments Latex Rash Medium 06/03/2019 Medications sertraline (ZOLOFT) 50 mg tablet TK 1 T PO QD 05/13/2019 Active drospirenone, contraceptive, (Slynd) 4 mg (28) tablet Take 4 mg by mouth daily Active metoclopramide (REGLAN) 10 mg tablet Take 1 tablet (10 mg total) by mouth every 6 (six) hours 30 tablet 10/30/2021 Active Active Problems Problem Noted Date Diagnosed Date Biliary dyskinesia 06/03/2019 Assessment & Plan (06/29/2019 9:37 AM CDT): It appeared that this 1 incision tried to spit the stitch out. With her trimming the little area that had backed out it completely resolved the small amount of drainage. She is going to treat this area with a little bit of hydrogen peroxide and bacitracin daily. I did discuss that further stitch may back out and it may start to drain again. If that would be the case I will numb her up in the office and cut the entire stitch out to prevent this from happening again. She is in understanding. Assessment & Plan (06/17/2019 10:05 AM CDT): Diet as tolerated. Okay to return to work with light duty. No heavy lifting greater than 20 lb for 4 weeks. No submerging incisions for 4 weeks. Please call for any further questions or concerns. Assessment & Plan (06/03/2019 9:37 AM CDT): Given that she has no stones in just dyskinesia I normally would consider this to be non emergent and wait for after the elective Ban on cases has been lifted. However given that she is losing weight, having pain on a daily basis and is unable to produce milk for her this may need to be addressed on a more urgent basis. I will discuss this with the surgery chair and anesthesia to see if they concur. We will let the patient now in the next day or so. I have discussed risks and benefits of surgery to include bleeding, infection and post cholecystectomy diarrhea. We have discussed postoperative restrictions as well. She is in understanding. Surgical History Surgery Date Site/Laterality Comments CHOLECYSTECTOMY 06/09/2019 Medical History Medical History Date Comments Miscarriage Post- depression 2018 Family History Medical History Relation Name Comments Diabetes Maternal Grandmother Relation Name Status Comments Maternal Grandmother Social History Tobacco Use Types Packs/Day Years Used Date Smoking Tobacco: Never Smokeless Tobacco: Never Alcohol Use Standard Drinks/Week Comments Never 0 (1 standard drink = 0.6 oz pur e alcohol) AUDIT-C Answer Date Recorded Q1: How often do you have a drink containing alc ohol? 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 Gender Identity Not on file Sexual Orientation Not on file Obstetrics History Para Term AB IAB SAB Ectopic Multiple Livin g Live Births 1 Date Outcome GA Total Labor Labor/2nd/3rd Weight Sex Type Anes PTL Hanna A1 A5 Name Clin Last Filed Vital Signs Vital Sign Reading Time Taken Comments Blood Pressure 105/60 10/30/2021 3:00 PM CDT Pulse 72 10/30/2021 3:00 PM CDT Temperature 37.1 C (98.8 F) 10/30/2021 11:32 AM CDT Respiratory Rate 18 10/30/2021 11:32 AM CDT Oxygen Saturation 100% 10/30/2021 3:00 PM CDT Inhaled Oxygen Concentration - - Weight 59 kg (130 lb) 10/30/2021 11:32 AM CDT Height 172.7 cm (5' 8 ) 10/30/2021 11:32 AM CDT Body Mass Index 19.77 10/30/2021 11:32 AM CDT Plan of Treatment Health Maintenance Due Date Last Done Comments Cervical Cancer Screening 1998 Depression Screening 1998 Hepatitis C Screening 1998 DTaP/Tdap/Td Vaccine (1 - Tdap) 2009 Varicella Vaccines (1 of 2 - 13+ 2-dose series) 09/01/2011 HPV Vaccines (1 - 3-dose series) 2013 Hepatitis B Screening 2016 Regular Well Visit/Exam 18-64 2016 Influenza Vaccine (#1) 2023 Pneumococcal vaccine <65 Aged Out No longer eligible based on patient's age to complete this topic Insurance Care Teams Press Operator Assistant Relationship Specialty Start Date End Date No, Physician PCP - General 05/28/19
--- OUTSIDE RECORDS SUMMARY | 2024-06-26 19:39 | XMS_ITS | Clinical Summary ---
Author Organization [facility] Address [address] [place] [id number] Care Team Providers Care Director Energy Name Role Phone Unavailable Primary Care Provider Unavailabl e Social History Tobacco Use Types Packs/Day Years Used Date Smoking Tobacco: Never Assessed Comments Unknown Sex and Gender Information Value Date Recorded Sex Assigned at Not on file Legal Sex Female 9:55 PM CDT Gender Identity Not on file Sexual Orientation Not on file Plan of Treatment Health Maintenance Due Date Last Done Comments Hepatitis C Virus (HCV) Screening 1998 Human Papillomavirus (HPV) Immunization (3 - 2-dose series) 01/23/2013 09/24/2012, 07/24/2012 Pap Smear 09/01/2019 Influenza Immunization (#1) 2023 SARS-COV-2 Immunization ( season) 2023 Respiratory Syncytial Virus (RSV) Immunization (Adult) (1 - 1-dose 75+ series) 2073 Hepatitis B Immunization Completed 000, 1998, 1998 Pneumococcal Immunization Combined Aged Out 06/21/2000, 03/07/2000 No longer eligibl e based on patient's age to complete this topic DTaP/Tdap/Td Immunization Discontinued 2009, 03/07/2000, 03/06/1999, Additional history exists Meningococcal Immunization (ACWY) Aged Out 10/17/2009 No longer eligible based on patient's age to complete this topic TdaP Immunization Completed 10/17/2009 Rotavirus Immunization Aged Out No lo nger eligible based on patient's age to complete this topic Insurance [employer] on file MEDICAID [employer]
--- OUTSIDE RECORDS SUMMARY | 2024-06-26 19:39 | XMS_ITS | Clinical Summary ---
Author Organization [facility] Address [address] [place] [address] Care Team Providers Care Optical Design Engineer Name Role Phone Duyen, Анна BILL Primary Care Provider [phone] Allergies Active Allergy Reactions Criticality Noted Date Comments Latex Rash Medium 10/23/2012 Mushroom Extract Complex (Obsolete) Rash Low 10/23/2012 Strawberries Rash Medium 10/23/2012 Medications fluticasone propionate (FLOVENT HFA) 220 MCG/ACT inhaler Inhale 1 puff into the lungs 2 (two) times daily. 12 g 04/12/2023 Active cyclobenzaprine (FLEXERIL) 5 MG tablet Take 1 tablet (5 mg total) by mouth 3 (three) times daily as needed for Muscle Spasms. Active albuterol sulfate HFA 108 (90 Base) MCG/ACT inhaler Inhale 2 puffs into the lungs every 6 (six) hours as needed for Wheezing. 18 g 04/19/2023 Active Social History Tobacco Use Types Packs/Day Years Used Date Smoking Tobacco: Never Smokeless Tobacco: Never Tobacco Cessation:Counseling Given: Not Answered Alcohol Use Standard Drinks/Week Comments No 0 (1 standard drink = 0.6 oz pur e alcohol) Humiliation, Afraid, Rape, and Kick questionnair e Answer Date Recorded Within the last year, have y ou been afraid of your partner or ex-partner? No 12/20/2021 Within the last year, have y ou been humiliated or emotionally abused in other ways by your partner or ex-partner? No Within the last year, have y ou been kicked, hit, slapped, or otherwise physically hurt by your partner or ex-partner? No 12/20/2021 Within the last year, have y ou been raped or forced to have any kind of sexual activity by your partner or ex-partner? No 12/20/2021 Social Connection and Isolat ion Panel [NHANES] Answer Date Recorded In a typical week, how many times do you talk on the phone with family, friends, or neighbors? More than three times a week 12/20/2021 How often do you get togethe r with friends or relatives? More than three times a week 12/20/2021 How often do you attend chur or hindu services? Never 12/20/2021 Do you belong to any clubs o r organizations such as holiness groups, unions, fraternal or athletic groups, or school groups? No 12/20/2021 How often do you attend meet ings of the clubs or organizations you belong to? Never 12/20/2021 Are you , , di vorced, , never , or living with a partner? Never 12/20/2021 AUDIT-C Answer Date Recorded Q1: How often do you have a drink containing alcohol? Never 12/20/2021 Q2: How many drinks containi ng alcohol do you have on a typical day when you are drinking? Patient does not drink Q3: How often do you have si x or more drinks on one occasion? Never 12/20/2021 Overall Financial Resource Strain (CARDIA) Answe r Date Recorded How hard is it for you to pa y for the very basics like food, housing, medical care, and heating? Not hard at all 12/20/2021 [facility] [facility] - Occupational Stress Questionnaire Answer Date Recorded Do you feel stress - tense, restless, nervous, or anxious, or unable to sleep at night because your mind is troubled all the time - these days? Not at all 12/20/2021 Exercise Vital Sign Answer Date Recorde d On average, how many days pe r week do you engage in moderate to strenuous exercise (like a brisk walk)? 0 days 12/20/2021 On average, how many minutes do you engage in exercise at this level? 0 min 12/20/2021 Hunger Vital Sign Answer Date Recorded Within the past 12 months, y ou worried that your food would run out before you got the money to buy more. Never true 12/21/19 22 Within the past 12 months, t he food you bought just didn't last and you didn't have money to get more. Never true 12/20/2021 PRAPARE - Transportation Answer Date Re corded In the past 12 months, has l ack of transportation kept you from medical appointments or from getting medications? No 11/25 In the past 12 months, has l ack of transportation kept you from meetings, work, or from getting things needed for daily living? No 12/20/2021 Housing Stability Vital Sign Answer Lacho e Recorded In the last 12 months, was t here a time when you were not able to pay the mortgage or rent on time? No 12/20/2021 Number of Places Lived in the Last Year Not on f ile 12/20/2021 In the last 12 months, was t here a time when you did not have a steady place to sleep or slept in a long-term (including now)? No 12/20/2021 Comments No Sex and Gender Information Value Date Recorded Sex Assigned at Not on file Legal Sex Female 6:53 PM CDT Gender Identity Not on file Sexual Orientation Not on file Last Filed Vital Signs Vital Sign Reading Time Taken Comments Blood Pressure 119/79 04/19/2023 9:00 PM BULK PLANT SUPERVISOR Pulse 99 04/19/2023 9:00 PM BULK PLANT SUPERVISOR Temperature 37.2 C (98.9 F) 04/19/2023 9:00 PM BULK PLANT SUPERVISOR Respiratory Rate 16 04/19/2023 9:00 PM BULK PLANT SUPERVISOR Oxygen Saturation 97% 04/19/2023 9:00 PM BULK PLANT SUPERVISOR Inhaled Oxygen Concentration - - Weight 51.7 kg (113 lb 15.7 oz) 04/19/2023 6:46 PM BULK PLANT SUPERVISOR Height 172.7 cm (5' 8 ) 04/19/2023 6:46 PM BULK PLANT SUPERVISOR Body Mass Index 17.33 04/19/2023 6:46 PM BULK PLANT SUPERVISOR Plan of Treatment Health Maintenance Due Date Last Done Comments Annual Physical 2001 DTaP, Tdap and Td Vaccines (5 - Tdap) 2009 03/07/2000, 03/06/1999, 01/08/1999, Additional history exists HPV Vaccines (3 - 2-dose series) 01/23/2013 09/24/2012, 07/24/2012 Hepatitis B Vaccines (1 of 3 - 19+ 3-dose series) 2017 COVID-19 Vaccine (1 - 2023- season) 2023 Cervical Cancer Screening Pap Smear (Age 21 to 29) Every 3 Years 07/11/2024 07/11/2021, 07/11/2021, 05/01/2021 Cervical Cancer Screening 07/11/2024 Meningococcal Vaccine Aged Out 10/17/2009 No ale carol eligible based on patient's age to complete this topic Hepatitis C Completed 08/09/2021, 08/09/2021 Chlamydia Screening Females ages 16-24 Discontinued 12/21/2021, 08/17/2021, 07/11/2021 Meningococcal B Vaccine Aged Out No l onger eligible based on patient's age to complete this topic Pneumococcal Vaccine: Pediatrics (0 to 5 Years) and At-Risk Patients (6 to 49 Years) Aged Out No longer eligible based on patient's age to complete this topic RSV Immunizations Under 20 Months Aged Out No longer eligible based on patient's age to complete this topic Procedures Procedure Name Priority Date/Time Associated Diagnosis Comments CHLAMYDIA GC RNA STAT 12/21/2021 2:19 AM CDT ([facility]) from Last 3 Months or Most Recently Relevant to Health Maintenance Results * (ABNORMAL) CHLAMYDIA GC RNA (12/21/2021 2:19 AM CDT) SPEC DESCRIPTION UNKNOWN 12/22/19 2:44 AM CDT [facility] CHLAMYDIA RNA TMA POSITIVE(A) NEGATIVE 2021 11:09 AM CDT [facility] Comment:PERFORMED BY NUCLEIC ACID AMPLIFICATION N.GONORRHOEAE RNA TMA NEGATIVE NEGATIVE 12/21/2021 11:09 AM CDT [facility] Comment:PERFORMED BY NUCLEIC ACID AMPLIFICATION VAGINAL STRUCTURE / Unknown 12/21/2021 2:19 AM CDT us Sarah aRjan MD MICROBIOLOGY - GENERAL ORDERABLE S Final Result [facility] [address] [place] [address], [place] [phone] [facility] [address] [place] [address], from Last 3 Months or Most Recently Relevant to Health Maintenance Insurance [employer] Care Teams Optical Design Engineer Relationship Specialty Start Date End Date Анна Geller NP [address] [place] [address] PCP - General OBGYN 02/18/19
--- OUTSIDE RECORDS SUMMARY | 2024-06-26 19:39 | XMS_ITS | Encounter Summary ---
Author Organization [facility] Health Address [address] [place] [address] Care Team Providers Care Veterinary Practitioner Name Role Phone Cornelio Neumann MD Primary Care Provider [phone] Reason for Visit * Reason Onset Date Comments Referral 12/05/2020 Encounter Details Date Type Department Care Team (Late st Contact Info) Description 12/05/2020 Telephone [facility] [address] [place], [place] [id number] Katina Ayon MD [address] [place] [address] Referral Social History Tobacco Use Types Packs/Day Years Used Date Smoking Tobacco: Never Smokeless Tobacco: Never Alcohol Use Standard Drinks/Week Comments No 0 (1 standard drink = 0.6 oz pur e alcohol) Comments Unknown Sex and Gender Information Value Date Recorded Sex Assigned at Not on file 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 Answer Date of Assessment Author No 09/06/2015 11:36 AM Bettie Bernal RN * Is person blind or have serious difficulty seeing? Answer Date of Assessment Author No 09/06/2015 11:36 AM Bettie Bernal RN * Does person have serious difficulty walking/climbing stairs? Answer Date of Assessment Author No 09/06/2015 11:36 AM CDT Bettie Barcenas RN * Does person have difficulty dressing/bathing? Answer Date of Assessment Author No 09/06/2015 11:36 AM CDT Bettie Barcenas RN * Does person have difficulty doing errands alone? Answer Date of Assessment Author No 09/06/2015 11:36 AM CDT Bettie Barcenas RN documented as of this encounter Mental Status * Does person have difficulty concentrating/remembering/making decisions? Answer Entry Date Author No 09/06/2015 11:36 AM CDT Bettie Barcenas RN documented in this encounter Miscellaneous Notes * Telephone Encounter - Mattie Rainey - 12/05/2020 1:45 PM CDT Geraldine from [facility] want's to know if you'd like to have the referral sent directlyto you or go through the referral dept. Pt diagnosed with Pelvic Congestion Syndrome. If you get her voicemail, a detailed message is fine. [phone] ext [phone] documented in this encounter Plan of Treatment Not on file documented as of this encounter Visit Diagnoses Not on filedocumented in this encounter Care Teams Veterinary Practitioner Relationship Specialty Start Date End Date Cornelio Neumann MD [address] [place] [id number] PCP - General Pediatrics 10/20/12 08/06/23 documented as of this encounter
--- OUTSIDE RECORDS SUMMARY | 2024-06-26 19:40 | XMS_ITS | Data Portability ---
Author Organization [facility] [place] Address [address] [place] [address] [address] Assessment Encounter Date Assessment Date Assessment LastModified by Organization Details LastModified Time 07/10/2022 07/10/2022 Annual gynecological exam performed. Patient will come back in a year unless there are new symptoms. Suggest Calcium with Vitamin D if not eating in diet. Patient advised to get annual flu shot. Recommend yearly physicals and preform monthly breast exams. Genetic testing is available for patients with family history of cancer. Engage in safe sexual practices, use condoms. Encouraged to have daily exercise. Avoid tobacco and illicit drugs, moderation of alcohol. If BMI greater than 25 dietary consult advised. If you have any questions please call or email. resent gi referral, gave pt phone number of the office Not available 07/10/2022 16:19:21 Plan of Treatment Reminders Order Date Submit Date Provider Last Modified By Organization Details Last Modified Time Details Appointments None recorded. Lab test, urine 2022 023 [email or web address] 1 [place], [address], [place], [address], 17:17:11 urinalysis, dipstick 2022 023 [email or web address] 1 [place], [address], [place], [address], 17:18:45 culture, urine 2022 023 [facility] (Lab), [address], [place], [address], 3 20:01:46 Referral None recorded. Procedures None recorded. Surgeries None recorded. Imaging US, pelvis, complete 2023 024 [email or web address] 1 [address], [address], [place], [address], 4 11:37:34 Medication Orders cyclobenzap rine 5 mg tablet 2022 023 [id number], [place], [place], [id number], 3 17:19:46 Patient TargetsNo targets recorded. Patient InstructionsNo instructions recorded. Reason for Referral None Reported. Results Created Date Observation Date Name Description Value Unit Range Abnormal Flag Note LastModifiedBy Organization Detail LastModifiedTime 07/11/19 23 07/10/2022 IMAGE GUIDE D PAP, REFLE X HPV IF ASCUS ONLY image guided Pap, reflex HPV ASCUS only SEE RESULT S BELOW CASE REPOR T: Cytol ogy Gynec ologi delfino Repor t Case: [id number] Autho juan le Provi domitila: Анна Wolf NP Colle cted: 07/10 1657 Order ing Locat ion: [place] [facility] Recei mika: 07/11 0211 First Scree n: Mavis Grace Speci men: Scree omero Pap - Image d, Cervi x STATE MENT OF ADEQU ACY: Satis facto ry for evalu ation Trans forma tion zone compo nent prese nt FINAL DIAGN OSIS: Negat tomasz for Intra epith elial Leskelley n or Cecilia ramon (NIL) . Elect ciaran herrera south d by Mavis Grace on 2022 at 4:50 PM ----- ----- ----- ----- ----- ----- ----- ----- ----- ----- ----- ----- ----- ----- ----- ----- ----- ---- COMME NT: This speci men was revie wed by a Cytot echno logis t and/o r Patho logis t (as indic ated in this repor t) after evalu ation using the Thinp rep Imagi ng Syste m. CLINI DELFINO INFOR MATIO N: Menst rual Statu s: LMP (if appli cable ): Clini delfino Histo ry/Pr eviou s Pap: Type of Neopl romulo (if appli cable ): Signi fican t Clini delfino Findi ngs: Other Histo ry: Hormo bryan (if appli cable ): PAP EDUCA SCARLETT L NOTE: The Pap Test is a scree omero test with an inher ent false negat tomasz rate. Liqui d-bas ed sampl ing may decre ase, but will not elimi cheri, false negat tomasz resul ts. A negat tomasz resul t does not precl ude the prese nce and/o r devel opmen t of disea se, since the prese nce of abnor mal cells in the sampl e depen ds on the locat ion of the lesio n and sampl ing techn ique. Sandrita nued regul ar scree omero is the best metho d of cance r preve ntion . If repor molina cytol ogic findi ng do not corre late with physi delfino and/o r histo rical findi ngs, furth er inves tigat ion is recom kyleigh d, as clini casey zheng nted. Not Available [facility] (Lab) [address], [place], [address], 07/11/2022 17:54:18 02/20/20 23 02/19/2023 VAGIN ITIS/ VAGIN OSIS, DNA PROBE camila sp. detection, direct probe Negati ve negati ve Not Available [facility] (Lab) [address], [place], [address], 02/20/2023 16:09:32 02/20/20 23 02/19/2023 VAGIN ITIS/ VAGIN OSIS, DNA PROBE gardnerella vag. detection, direct probe Negati ve negati ve Not Available [facility] (Lab) [address] [place], [address], 02/20/2023 16:09:32 02/20/20 23 02/19/2023 VAGIN ITIS/ VAGIN OSIS, DNA PROBE trichomonas vag. detection, direct probe Negati ve negati ve Not Available [facility] (Lab) [address] [facility], [place], [address], 02/20/2023 16:09:32 02/20/20 23 02/19/2023 CT/GC (ANKIT) , SWAB chlamydia trachomatis, PCR Negati ve negati ve Not Available [facility] (Lab) [address] [facility], [place], [address], 02/20/2023 16:09:32 02/20/20 23 02/19/2023 CT/GC (ANKIT) , SWAB neisseria gonorrhoeae, PCR Negati ve negati ve Not Available [facility] (Lab) [address] [place], [address], 02/20/2023 16:09:32 02/20/20 23 02/19/2023 CULTU RE: URINE result report SEE RESULT S BELOW Test: Cultu re: Urine Speci men Sourc e: Urine Voide d Speci men Type: Urine Speci men Date: 02/19 5:21 PM Resul t Date: 02/20 6:58 PM Resul t Statu s: Final resul t Abnor mal: No Resul ting Lab: [facility] [address] [facility] [address] Tel: CULTU RE ----- ----- ----- --- No growt h in 1 day (dete ction level of 10,00 0 colon ies / ml.) Not Available [facility] (Lab) [address] [place], [address], 02/20/2023 20:01:46 02/20/20 23 02/19/2023 urina lysis , dipst ick Leukocytes trace Not Available [facility] [address], [place], [address], 02/19/2023 17:05:22 02/20/20 23 02/19/2023 urina lysis , dipst ick Nitrite normal Not Available [place] [address], [place], [address], 02/19/2023 17:05:22 02/20/20 23 02/19/2023 urina lysis , dipst ick Urobilinogen normal Not Available [facility] [place] [address], [place], [address], 02/19/2023 17:05:22 02/20/20 23 02/19/2023 urina lysis , dipst ick Protein trace Not Available [place] [address], [place], [address], 02/19/2023 17:05:22 02/20/20 23 02/19/2023 urina lysis , dipst ick pH 8 Not Available [place] [address], [place], [address], 02/19/2023 17:05:22 02/20/20 23 02/19/2023 urina lysis , dipst ick Blood Not Available [place] [address], [place], [address], 02/19/2023 17:05:22 02/20/20 23 02/19/2023 urina lysis , dipst ick Specific Cameron 1.000 Not Available [facility] coni [address], [place], [address], 02/19/2023 17:05:22 02/20/20 23 02/19/2023 urina lysis , dipst ick Ketone normal Not Available [place] [address], [place], [address], 02/19/2023 17:05:22 02/20/20 23 02/19/2023 urina lysis , dipst ick Bilirubin normal Not Available Vahid wolf [address], [place], [address], 02/19/2023 17:05:22 02/20/20 23 02/19/2023 urina lysis , dipst ick Glucose normal Not Available [place] [address], [place], [address], 02/19/2023 17:05:22 02/20/20 23 02/19/2023 urina lysis , dipst ick Appearance normal Not Available [facility] [address], [place], [address], 02/19/2023 17:05:22 02/20/20 23 02/19/2023 urina lysis , dipst ick Color normal Not Available [place] [address], [place], [address], 02/19/2023 17:05:22 Result Notes None recorded. Problems Name Problem SNOMED Code Status Onset Date Resolution Date Notes Provider Name and Address Organization Details Recorded Time Pregnanc y test negative [id number] Completed 201505/03/2020 Encounte r for pregnanc y test, result negative ;Recorde d Elsewher e: No Locat ion: [facility] S ource: EHR Bridge Game Director severo: N Practi ce ID: 0001 Alvaro lable Time: 04:15:00 PM Haylee Mccain [place], [place] - [facility] 14:14:39 Normal pregnanc y in multigra linda [id number] 4106 Completed 201805/03/2020 Encounte r for supervis ion of other normal pregnanc y, 3rd trimeste r;Record ed Elsewher e: No Locat ion: Vahid wolf [facility] S ource: EHR Bridge Game Director severo: N Practi ce ID: 0001 Alvaro lable Time: 08:45:00 AM Haylee Mccain johnny, [facility] 14:14:34 Surveill ance of contrace ption Completed 201605/03/2020 Encounte r for surveill ance of contrace ptives, unspecif ied;Kyle rded Elsewher e: No Locat ion: [facility] S ource: EHR Bridge Game Director severo: N Practi ce ID: 0001 Alvaro lable Time: 01:00:00 PM Haylee Mccain johnny, [facility] 14:14:55 Educatio n Completed 201805/03/2020 Encounte r for oth general cnsl and advice on contrace ption;Re corded Elsewher e: No [facility]: N Practi ce ID: 0001 Alvaro lable Time: 11:45:00 AM Haylee Mccain johnny, [facility] 14:14:19 Cyst of vulva [id number] Completed 201505/03/2020 Vulvar cyst;Rec orded Elsewher e: No [facility] S ource: EHR Bridge Game Director severo: N Practi ce ID: 0001 Alvaro lable Time: 10:30:00 AM Haylee Mccain johnny, [facility] 14:14:13 Depressi ve disorder [id number] Completed 201905/03/2020 Depressi on;Recor ded Elsewher e: No [facility] E[facility] Bridge Game Director severo: N Practi ce ID: 0001 Alvaro lable Time: 11:45:00 AM Haylee Mccain johnny, [facility] 14:14:16 Abdomina l pain [id number] Completed 201805/03/2020 Abdomina l pain;Rec orded Elsewher e: No Locat ion: Katinasuad luciano [facility] S ource: EHR Bridge Game Director severo: N Lawrence ce ID: 0001 Alvaro lable Time: 11:00:00 AM Haylee Mccain johnny, [facility] 14:14:[address] Concept Completed 201605/03/2020 Encntr for routine child health exam w/o abnormal findings ;Recorde d Elsewher e: No Locat ion: Katinasuad luciano [facility] S ource: EHR Bridge Game Director severo: N Lissti ce ID: 0001 Alvaro lable Time: 08:15:00 AM Haylee Mccain [facility], [facility] 14:14:50 Menstrua tion finding Completed 201105/03/2020 Excessiv e or frequent menstrua tion;Rec orded Elsewher e: No Locat ion: Katinasuad luciano [facility] S ource: EHR Bridge Game Director severo: N Lawrence ce ID: 0001 Alvaro lable Time: 02:30:00 PM Haylee Mccain johnny, [facility] 14:14:[address] Concept Completed 201905/03/2020 Anxiety; Recorded Elsewher e: No Locat ion: Katinasuad luciano [facility] S ource: EHR Bridge Game Director severo: N Lawrence ce ID: 0001 Alvaro lable Time: 11:45:00 AM Haylee Mccain johnny, [facility] 14:14:47 Uterine size for dates discrepa ncy Completed 201805/03/2020 Uterine size-gladis e discrepa ncy, third trimeste r;Record ed Elsewher e: No Locat ion: Katinasuad luciano [facility] S ource: EHR Bridge Game Director severo: Yasmani Leijati ce ID: 0001 Alvaro lable Time: 03:30:00 PM Haylee Mccain [facility], [facility] 14:15:02 Evaluati on finding Completed 201805/03/2020 Hematuri a, unspecif ied;Kyle rded Elsewher e: No Locat ion: Katinasuad wolf [facility] S ource: EHR Bridge Game Director severo: N Lissti ce ID: 0001 Alvaro lable Time: 01:00:00 PM Haylee Mccain [facility] 14:14:23 Pregnanc y, childbir th and puerperi um finding Completed 201805/03/2020 Encntr for suprvsn of normal first preg, second trimeste r;Record ed Elsewher e: No [facility]: [facility] Bridge Game Director severo: N Lissti ce ID: 0001 Alvaro lable Time: 08:30:00 AM Haylee Mccain [facility] 14:14:41 Educatio n Completed 201405/03/2020 Other general counseli ng and advice on contrace ptive manageme nt;Recor ded Elsewher e: No Locat ion: Vahid wolf [facility] S ource: EHR Bridge Game Director severo: N Lissti ce ID: 0001 Alvaro lable Time: 03:30:00 PM Haylee Mccain [facility] 14:14:21 Pelvic and perineal pain [id number] Completed 201805/03/2020 Pelvic and perineal pain;Rec orded Elsewher e: No [facility]: [facility] [employer] Game Director severo: N Practi ce ID: 0001 Alvaro lable Time: 01:00:00 PM Haylee Mccain [facility] 14:14:37 Uses combined oral contrace ption 562330603 Completed 201705/03/2020 Encounte r for surveill ance of contrace ptive pills;Re corded Elsewher e: No [facility] S ource: EHR Bridge Game Director severo: N Lissti ce ID: 0001 Alvaro lable Time: 01:45:00 PM Haylee turner, [facility] 14:14:11 Antenata l screenin g for malforma tion Completed 201805/03/2020 Encounte r for antenata l screenin g for malforma tions;Re corded Elsewher e: No Locat ion: Vahid wolf [facility] S ource: [facility] severo: N Lissti ce ID: 0001 Alvaro lable Time: 01:30:00 PM Haylee turner, [facility] 14:14:10 Pregnanc y, childbir th and puerperi um finding Completed 201805/03/2020 Encntr for suprvsn of normal first preg, third trimeste r;Record ed Elsewher e: No Locat ion: Vahid [facility] S ource: [facility] severo: N Lawrence ce ID: 0001 Alvaro lable Time: 11:00:00 AM Haylee turner, [facility] 14:14:43 Gestatio n period, 34 weeks [id number] Completed 201805/03/2020 34 weeks gestatio n of pregnanc y;Record ed Elsewher e: No Locat ion: Vahid [facility] S ource: [facility] severo: N Lawrence ce ID: 0001 Alvaro lable Time: 10:00:00 AM Haylee turner, [facility] 14:14:26 Single live from singleto n pregnanc y [id number] Completed 201805/03/2020 Single live ;Re corded Elsewher e: No [facility] S our[facility]: [facility] severo: N Lissti ce ID: 0001 Alvaro lable Time: 11:45:00 AM Haylee turner, [facility] 14:14:45 Acute vaginiti s 90322031 Completed 201705/03/2020 Vaginiti s;Record ed Elsewher e: No Locat ion: Katinasuad luciano [facility] S ource: EHR Bridge Game Director severo: N Lissti ce ID: 0001 Alvaro lable Time: 11:30:00 AM Haylee turner, [facility] 14:14:05 Antenata l screenin g Completed 201805/03/2020 Encounte r for other specifie d antenata l screenin g;Record ed Elsewher e: No Locat ion: Katinasuad luciano [facility] S ource: EHR Bridge Game Director severo: N Practi ce ID: 0001 Alvaro lable Time: 08:30:00 AM Haylee turner, [facility] 14:14:07 Gestatio n period, 37 weeks [id number] Completed 201805/03/2020 37 weeks gestatio n of pregnanc y;Record ed Elsewher e: No Locat ion: Katinasuad luciano [facility] S ource: EHR Bridge Game Director severo: N Practi ce ID: 0001 Alvaro lable Time: 03:30:00 PM Haylee turner [facility] 14:14:[address] Concept Completed 201605/03/2020 Well woman check w/o abnormal finding; Recorded Elsewher e: No Locat ion: Vahid wolf [facility] S ource: EHR Bridge Game Director severo: N Practi ce ID: 0001 Alvaro lable Time: 08:15:00 AM Haylee turner [facility] 14:14:52 Trauma to perineum and/or vulva during delivery [id number] Completed 201805/03/2020 Other specifie d trauma to perineum and vulva;Pr actice ID: 0001 Haylee turner [facility] 14:14:58 Complica tion of pregnanc y, childbir th and/or puerperi [id number] Completed 201805/03/2020 Oth diseases and conditio ns compl preg/chl dbrth;Pr actice ID: 0001 Haylee Adán [facility], [facility] 1 14:15:00 Gestatio n period, 39 weeks [id number] Completed 201805/03/2020 39 weeks gestatio n of pregnanc y;Practi ce ID: 0001 Haylee Adán [facility], [facility] 14:14:29 Depressi ve disorder [id number] Completed Zoloft-5 0 mg, stable Chioma Chen null, [facility] 3 17:00:35 Hyperthy roidism [id number] Completed 0.22; t4 wnl; repeat 09/07 tsh reflex t4; 01/10 WNL Chioma Chen null, [facility] 3 17:00:35 Anemia 276380959 Completed 2021 slowfe 1 tab bid Chioma Chen null, [facility] 3 17:00:35 Problem Notes None recorded. Procedures Surgical History Date Name Laterality Status Provider Name and Address Organization Details Recorded Time 024 LAPAROSCOPY, DIAGNOSTIC (SURG) completed Kimberlee Jernigan [facility] 05/08/2023 10:51:01 023 Date of Last Pap Smear completed Haylee Mccain [facility] 07/10/2022 16:33:32 023 IUD Insertion completed Анна Geller CNM [address], [place], [address], [facility] 03/27/2022 15:41:27 020 cholecystectomy completed Haylee Mccain [facility] 09/15/2019 17:04:52 005 myringotomy with tubes discharge education completed Haylee Mccain [facility] 09/15/2019 17:04:39 Imaging Results None recorded. Procedure Notes None recorded. Medical Equipment None Reported. Allergies Allergen ID Allergen Name Allergen Category Reaction Reaction Severity Criticality Documentation Date Start Date Code Code System Note Provider Name and Address Organization Details Recorded Time 25894 strawberr y allergeni c extract food rash Not available Not available 08/09/2021 52272 4 RxNorm Rosalind Schmidt [facility] 2 11:23:13 49201 cultivate d mushroom extract food rash Not available Not available 08/09/2021 79256 17 RxNorm Rosalind [facility] 2 11:23:26 9550 latex environme nt,medica tion Not available Not available Not available 02/11/2020 07414 91 RxNorm Comme nt: Locat ion: [facility]ana [facility]ia [facility]; Not Available [facility] 0 14:14:27 Medications Name Sig Start Date Stop Date Status Note LastModified by Organization Details LastModified Time Prescript ion - Prior Authoriza tion Request TAKE 1 CAPSULE BY MOUTH EVERY 4 HOURS 12/25 completed Not Available Not Available Not Available cyclobenz aprine 10 mg tablet 07/11 completed Not Available Not Available Not Available Mirena 21 mcg/24 hr (up to 8 years) 52 mg intrauter ine device Take 1 device by intraute rine route. 2022 active Not Available Not Available Not Avai lable dicloxaci llin 500 mg capsule TAKE 1 CAPSULE BY MOUTH EVERY 6 HOURS FOR 10 DAYS 12/01 completed Not Available Not Available Not Available Aviane 0.1 mg-20 mcg tablet take 1 tablet by oral route every day 05/21 completed Prescrib ed Elsewher e: No Locat ion: [facility] M odify By: vasyl Huntley r DateTime : 12/04/19 17 08:22:18 AM Not Available Not Available Not Available Stool Softener 100 mg capsule 05/03 completed Not Available Not Available Not Available azithromy uzair 250 mg tablet TAKE 2 TABLETS (500 MG) BY ORAL ROUTE ONCE DAILY FOR 1 DAY THEN 1 TABLET (250 MG) BY ORAL ROUTE ONCE DAILY FOR 4 DAYS 05/13 completed Not Available Not Available Not Available fluconazo le 150 mg tablet TAKE 1 TABLET BY MOUTH NOW. REPEAT IN 48 HOURS 02/19 completed Not Available Not Available Not Available hydrocodo ne 5 mg-acetam inophen 325 mg tablet 05/03 completed Not Available Not Available Not Available promethaz ine 12.5 mg tablet TAKE 1 TABLET BY MOUTH FOUR TIMES DAILY NEEDED 12/25 completed Not Available Not Available Not Available ondansetr on HCl 4 mg tablet TAKE 1 TABLET BY MOUTH EVERY 4 TO 6 HOURS NEEDED 12/25 completed Not Available Not Available Not Available terconazo le 0.8 % vaginal cream INSERT 1 APPLICAT ORFUL VAGINALL Y EVERY NIGHT AT BEDTIME FOR 3 NIGHTS 12/25 completed Not Available Not Available Not Available metronida zole 500 mg tablet TAKE 1 TABLET BY MOUTH TWICE DAILY FOR 7 DAYS 07/11 completed Not Available Not Available Not Available ketorolac 10 mg tablet TAKE 1 TABLET BY MOUTH EVERY 8 HOURS NEEDED FOR PAIN 07/11 completed Not Available Not Available Not Available nystatin- triamcino lone 100,000 unit/gram -0.1 % topical ointment apply by topical route 2 times every day to the affected area(s) 05/25 completed Prescrib ed Elsewher e: No Locat ion: Vahid wolf [facility] M odify By: cmschult z Alise ter DateTime : 01/21/20 05:58:15 PM Not Available Not Available Not Available oxycodone -acetamin ophen 5 mg-325 mg tablet TAKE 1 TABLET BY MOUTH EVERY 4 HOURS NEEDED FOR PAIN 05/13 completed Not Available Not Available Not Available Microgest in FE 03/15 (28) 1 mg-20 mcg (21)/75 mg (7) tablet take 1 tablet by oral route every day 07/06 completed Prescrib ed Elsewher e: No Locat ion: Vahid [facility] M odify By: vasyl christianson DateTime : 07/26/19 01:45:00 PM Not Available Not Available Not Available famotidin e 20 mg tablet TAKE 1 TABLET BY MOUTH AT BEDTIME 07/11 completed Not Available Not Available Not Available Depo-Prov era 150 mg/mL intramusc ular suspensio n inject 1 millilit er by intramus cular route every 3 months 05/21 [facility] Loc[facility]: [facility] luciano [facility] odify By: vasyl Huntley r DateTime : 03/06/19 11:30:00 AM Not Available Not Available Not Available benzonata te 100 mg capsule 05/13 completed Not Available Not Available Not Available cephalexi n 500 mg capsule TAKE 1 CAPSULE BY MOUTH EVERY 8 HOURS FOR 7 DAYS 12/01 completed Not Available Not Available Not Available lidocaine 5 % topical patch 12/25 completed Not Available Not Available Not Available fluticaso ne propionat e 220 mcg/actua tion HFA aerosol inhaler INHALE 1 PUFF INTO THE LUNGS TWICE DAILY 05/13 completed Not Available Not Available Not Available methylpre dnisolone 4 mg tablets in a dose pack FOLLOW PACKAGE DIRECTIO NS 05/13 completed Not Available Not Available Not Available albuterol sulfate HFA 90 mcg/actua tion aerosol inhaler INHALE 2 PUFFS BY MOUTH INTO THE LUNGS EVERY 6 HOURS NEEDED FOR WHEEZING 05/13 completed Not Available Not Available Not Available ondansetr on 4 mg disintegr ating tablet DISSOLVE 1 TABLET BY MOUTH EVERY 8 HOURS NEEDED FOR NAUSEA 03/27 completed Not Available Not Available Not Available sertralin e 50 mg tablet TAKE 1 TABLET BY MOUTH EVERY DAY 03/27 completed Not Available Not Available Not Available doxycycli ne hyclate 100 mg tablet TAKE 1 TABLET BY MOUTH TWICE DAILY FOR 7 DAYS 07/11 completed Not Available Not Available Not Available dicyclomi ne 10 mg capsule TAKE 1 TO 2 CAPSULES BY MOUTH THREE TIMES DAILY 05/13 completed Not Available Not Available Not Available naproxen 500 mg tablet 07/11 completed Not Available Not Available Not Available metoclopr amide 10 mg tablet TAKE 1 TABLET BY MOUTH EVERY 6 HOURS 12/25 completed Not Available Not Available Not Available Microgest in Fe 1.5/30 (28) 1.5 mg-30 mcg (21)/75 mg (7) tablet pt takes contious ly 03/06 completed Prescrib ed Elsewher e: No Locat ion: [facility] odify By: vianey Huntley r DateTime : 06/26/19 17 08:15:00 AM Not Available Not Available Not Available Lia 28 0.15 mg-0.03 mg tablet take 1 tablet by oral route every day 03/06 completed Prescrib ed Elsewher e: No Locat ion: [facility] odify By: vianey Huntley r DateTime : 11/07/19 17 01:00:00 PM Not Available Not Available Not Available azithromy uzair 500 mg tablet 12/25 completed Not Available Not Available Not Available cyclobenz aprine 5 mg tablet TAKE 1 TABLET UP TO 3 TIMES A DAY NEEDED active Not Available Not Available No t Available Microgest in 1.5/30 (21) 1.5 mg-30 mcg tablet take 1 tablet by oral route every day 03/06 completed Prescrib ed Elsewher e: No [facility] By: vianey Huntley r DateTime : 06/26/19 17 08:15:00 AM Not Available Not Available Not Available nitrofura ntoin monohydra te/macroc rystals 100 mg capsule TAKE 1 CAPSULE BY MOUTH TWICE DAILY UNTIL ALL TAKEN 07/11 completed Not Available Not Available Not Available Seasoniqu e 0.15 mg-30 mcg (84)/10 mcg(7) tablets,3 month dose pack take 1 tablet by oral route every day 07/25 completed Prescrib ed Elsewher e: No Locat ion: [facility] odify By: bulmaro awan DateTime : 05/22/19 18 05:45:00 PM Not Available Not Available Not Available butalbita l-acetami nophen-ca ffeine 50 mg-300 mg-40 mg capsule TAKE 1 CAPSULE BY MOUTH EVERY 4 HOURS 12/25 completed Not Available Not Available Not Available Slynd 4 mg (28) tablet TAKE 1 TABLET BY MOUTH EVERY DAY 07/11 completed Not Available Not Available Not Available Vitals Date Recorded Body height Body mass index (BMI) Body weight Systolic blood pressure Diastolic blood pressure Provider Name and Address Organization Details Last Updated DateTime 07/10/2022 172.72 cm 20.1 kg/m2 56660.19 g 117 mm[Hg] 79 mm[Hg] Haylee Mccain [facility] 3 16:03:43 Date Recorded Body height Body mass index (BMI) Body weight Systolic blood pressure Diastolic blood pressure Provider Name and Address Organization Details Last Updated DateTime 09/04/2022 172.72 cm 20.1 kg/m2 91570.19 g 122 mm[Hg] 76 mm[Hg] Amira Headley [facility] 3 15:46:06 Date Recorded Body height Body mass index (BMI) Body weight Systolic blood pressure Diastolic blood pressure Provider Name and Address Organization Details Last Updated DateTime 02/19/2023 172.72 cm 17.5 kg/m2 99178.12 g 127 mm[Hg] 75 mm[Hg] Haylee Mccain [facility] 3 16:53:11 Date Recorded Body height Body mass index (BMI) Body weight Systolic blood pressure Diastolic blood pressure Provider Name and Address Organization Details Last Updated DateTime 03/26/2023 172.72 cm 17.5 kg/m2 80699.12 g 106 mm[Hg] 66 mm[Hg] Rosalind Schmidt [facility] 4 16:39:06 Date Recorded Body height Body mass index (BMI) Body weight Systolic blood pressure Diastolic blood pressure Provider Name and Address Organization Details Last Updated DateTime 05/14/2023 172.72 cm 17.6 kg/m2 03265.71 g 115 mm[Hg] 74 mm[Hg] Cammy Aragon [facility] 4 15:27:33 Social History Question Answer Notes LastModified by Organizat ion Details LastModified Time Tobacco Smoking Status Never Smoker Ari Valenzuela [facility] 09/04/2022 15:27:48 Do You Have An Advance Directive? No Information not available 10/13/2020 What Is Your Level Of Alcohol Consumption? None [email or web address] Information not available 11/07/2021 If You Are , What Was Your Level Of Alcohol Consumption Prior To ? Occasional [email or web address] Information not available 09/04/2022 Are You Blind Or Do You Have Difficulty Seeing? No Information not available 10/13/2020 What Is Your Level Of Caffeine Consumption? Occasional Information not available 10/13/2020 How Much Tobacco Do You Chew? None Information not available 10/13/2020 In The 14 Days Before Symptom Onset, Have You Had Close Contact With A Laboratory-confir med COVID-19 While That Case Was Ill? No Information not available 10/13/2020 In The 14 Days Before Symptom Onset, Have You Had Close Contact With A Person Who Is Under Investigation For COVID-19 While That Person Was Ill? No Information not available 10/13/2020 Have You Been To An Area Known To Be High Risk For COVID-19? No Information not available 10/13/2020 Are You Deaf Or Do You Have Serious Difficulty Hearing? No Information not available 10/13/2020 What Type Of Diet Are You Following? REGULAR Information not available 10/13/2020 Do You Or Have You Ever Used E-cigarettes Or Vape? Never Used Electronic Cigarettes [email or web address] Information not available 09/04/2022 What Is The Highest Grade Or Level Of School You Have Completed Or The Highest Degree You Have Received? 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 No Information not available 10/13/2020 What Was The Date Of Your Most Recent Tobacco Screening? 02/19/2023 [email or web address] Information not available 02/19/2023 Do You Use Protection During Sex? Usually Information not available 10/13/2020 Do You Use Your Seat Belt Or Car Seat Routinely? Yes Information not available 10/13/2020 Do You Have Smoke And Carbon Monoxide Detectors In Your Home? Yes Information not available 10/13/2020 Do You Or Have You Ever Used Smokeless Tobacco? Never Used Smokeless Tobacco [email or web address] Information not available 09/04/2022 How Much Tobacco Do You Smoke? No [id number] Information not available 12/28/2019 Do You Feel Stressed (tense, Restless, Nervous, Or Anxious, Or Unable To Sleep At Night)? [id number] Information not available 10/13/2020 Do You Use Any Illicit Or Recreational Drugs? No Information not available 10/13/2020 Do You Use Sunscreen Routinely? No Information not available 10/13/2020 Have You Used IV Drugs? No Information not available 10/13/2020 Sex: Unknown Functional Status Question Answer Note LastModified by Organizat ion Details LastModified Time Do you have difficulty walking or climbing stairs? No [email or web address] Information not available 09/04/2022 Are you able to walk? YESWOREST Information not available 10/13/2020 Are you able to care for yourself? Yes Information not available 09/04/2022 Do you have difficulty dressing or bathing? No Information not available 09/04/2022 What is your exercise level? Occasional [id number] Information not available 12/28/2019 Mental Status None recorded. Family History Relationship Description Onset Age of this Age Resolved Age Notes LastModified by Organization Details LastModified Time Maternal Aunt Hypertensive disorder [email or web address] Not available 09/14 16:58:00 Maternal Aunt Malignant tumor of cervix [email or web address] Not available 09/14 16:58:13 Maternal Aunt Blood coagulation disorder [email or web address] Not available 09/14 16:58:21 Maternal Aunt Uterine prolapse [email or web address] Not available 2022 15:27:47 Maternal Aunt Cyst of ovary [email or web address] Not available 2022 15:27:47 Maternal Grandmother Hypertensive disorder Not available 09/14 16:58:00 Maternal Grandmother Malignant tumor of breast [email or web address] Not available 09/14 16:59:53 Maternal Grandmother Diabetes mellitus [email or web address] Not available 09/14 17:00:08 Maternal Grandmother Suspected brain tumor Not available 08/24 15:27:47 Maternal Uncle Hypertensive disorder [email or web address] Not available 09/14 16:58:00 Maternal Uncle Diabetes mellitus [email or web address] Not available 09/14 17:00:08 Maternal Uncle Heart disease [email or web address] Not available 09/14 17:01:22 Mother Cyst of ovary [email or web address] Not available 2022 15:27:47 Mother Malignant tumor of thyroid gland [email or web address] Not available 2022 15:27:47 Mother Disorder of thyroid gland [email or web address] Not available 05/03 20:43:47 Maternal Grandfather Seizure disorder [email or web address] Not available 2022 15:27:47 Notes:Maternal aunt: Hyperte nsion, Diabetes mellitus, clotting disorder, Cervical cancer, prolapsed uterus, ovarian cyst Maternal grandfather: Seizure disorder Maternal grandmother: Diabetes mellitus, Brain tumor, Cancer, breast, Hypertension Maternal uncle: Diabetes mellitus, Congenital heart disease, Hypertension Mother: Ovarian Cyst Medical History Condition Response Allergies (Food, seasonal, environmental ) N Other N Blood Transfusion N Breast Cancer N Drug/Latex Allergies/Reactions N Lung Disease N Dermatologic Disorders N Defects or Inherited Disease N Breast Problem N Gestational Diabetes N Hematologic disorders N Anesthesia Complications N History of STI N Deep Vein Thrombosis N Polycystic ovary syndrome N Anxiety Disorder Y Autoimmune disease N Arthritis N Polyps N Infertility N History of abnormal pap N Acid Reflux (GERD) Y Cancer N Varicosities N Stroke N Neurologic/Epilepsy N Endometriosis N High Cholesterol N Headaches N Fibromyalgia N Kidney Disease N Heart Problems Y Thyroid Problems N Kidney or Bladder Problems N GI Problems Y Eating Disorder N Anemia N Art (IVF or FET) N Psychiatric Illness N Ovarian Cancer N Diabetes N Pulmonary (TB, Asthma) N Hepatitis/Liver Disease N No Past Medical History N Eczema N Urinary Tract Infection N Abuse/Domestic Violence N Asthma N Trauma/Violence N Depression/ depression Y Heart Disease N Pre-Eclampsia N Hypertension N Osteoporosis N Thrombophilias N Gynecological History Statement/Question Response Date of LMP 04/10/2022 On BCP's at Conception? N N Was last menstrual period normal Y STIs/STDs N HPV Vaccine Y Current Control Method IUD Age at First Child 17 Frequency of Cycle (Q days) 7 Sexually Active? Y BCPs Date of DEXA bone scan Age of first menstrual cycle 11 Date of Last Pap Smear 07/10/2022 Sexual Problems? Y Desired Control Method BCPs LMP Approximate N Obstetrics History GPAL:G 3 P 2 0 1 2 Type Value Full Term 2 Spontaneous 1 Living 2 Total 3 Past Encounters Encounter ID Performer Location Encounter Start Date Encounter Closed Date Diagnosis/Indication Diagnosis SNOMED-CT Code Diagnosis ICD10 Code Diagnosis Note [id number] [facility] [address],[place] [address] 09/15/2019 12:32:35 09/15/2019 13:34:23 Mixed anxiety and depressive disorder 885904670 [facility] 217897042 Z30.9 [id number] Анна Geller [facility] [address],[place] [address] 05/03/2020 13:55:32 05/03/2020 14:36:19 Gynecologic examination 59970360 Z01.419 [id number] Srikanth Kemp MD [place] [address],[place] [address] 10/13/2020 10:16:58 10/13/2020 12:39:36 Mastitis associated with 962844598 O91.23 [id number] [facility] [address],[place] [address] 12/01/2020 11:13:49 12/01/2020 12:11:29 Pain in pelvis 04792773 R10.2 [id number] Srikanth Kemp MD [place] [address],[place] [address] 12/01/2020 12:19:24 12/01/2020 14:18:59 Pain in pelvis 57710118 R10.2 [id number] Srikanth Kemp MD [place] [address],[place] [address] 07/11/2021 09:25:16 07/11/2021 09:53:11 [id number] [facility] [address],[place] [address] 07/11/2021 09:25:59 07/11/2021 11:01:03 Gynecologic examination 35543610 Z01.419 Nausea and vomiting 1693 2000 R11.2 [id number] Srikanth Kemp MD [place] [address],[place] [address] 08/09/2021 10:19:19 08/09/2021 11:09:59 screening 988988795 Z36.82 [id number] Srikanth Kemp MD [place] [address],[place] [address] 08/09/2021 10:19:49 08/09/2021 11:56:07 Routine care 771910590 Z34.01 [id number] [facility] [address],[place] [address] 08/22/2021 11:26:52 08/22/2021 12:54:59 Pain in pelvis 12699443 R10.2 lifting restrictio ns, reviewed us, try flexeril, will obtain ed records for vaginal cultures, precaution s reviewed [id number] Srikanth Kemp MD [place] [address],[place] [address] 08/22/2021 11:54:32 08/22/2021 12:53:52 Abdominal pain in 647079275 Z3A.14 [id number] [facility] [address],[place] [address] 09/05/2021 12:11:07 09/05/2021 12:45:40 Routine care 943693646 Z34.92 screening 2437 94908 Z36.89 [id number] Srikanth Kemp MD [place] [address],[place] [address] 10/04/2021 10:56:36 10/04/2021 12:21:14 screening 835301314 Z36.3 [id number] Анна Geller [facility] [address],[place] [address] 10/04/2021 11:52:58 10/04/2021 11:53:17 Routine care 698557164 Z34.92 Migraine 45378585 G43.90 9 [id number] Chanda Reynolds [facility] [address],[place] [address] 11/01/2021 09:48:53 11/05/2021 16:31:42 Fatigue 60653117 R53.83 - induced hypertension 69945277 O13.9 [id number] Srikanth Kemp MD [place] [address] [place] [address] 11/07/2021 10:34:20 11/07/2021 11:12:25 condition affecting obstetrical care of mother 485089447 O35.8XX0 Z3A.25 [id number] Анна Geller [facility] [address] [place] [address] 11/07/2021 10:36:16 11/07/2021 11:29:41 Routine care 426029192 Z34.92 [id number] Анна Geller [facility] [address] [place] [address] 11/15/2021 16:15:16 11/15/2021 17:10:48 Urinary symptoms 714494897 R39.9 [id number] Srikanth Kemp MD [place] [address] [place] [address] 12/07/2021 11:30:39 12/07/2021 12:09:24 condition affecting obstetrical care of mother 495208616 O35.8XX0 O36.60X0 Z3A.29 [id number] Анна Geller [facility] [address] [place] [address] 12/07/2021 11:31:05 12/07/2021 12:25:07 Routine care 138974453 Z34.92 [id number] Анна Geller [facility] [address],[place] [address] 12/19/2021 17:14:29 12/19/2021 17:37:14 Routine care 742982340 Z34.92 Hyperthyro idism in 5021979722 9100 E05.90 - induced hypertension 75796465 O13.9 Yeast detected 113370418 R89.5 [id number] Gail Marshall MD [place] [address] [place] [address] 12/25/2021 16:56:03 12/26/2021 15:24:30 Venereal disease screening 697679792 Z11.3 Vaginal discharge 630116 006 N89.8 [id number] Srikanth Kemp MD [place] [address],[place] [address] 01/09/2022 11:23:01 01/09/2022 12:07:10 Large for gestation age fetus 477737745 O36.63X0 Z3A.34 [id number] Анна Geller [facility] [address] [place] [address] 01/09/2022 12:02:13 01/09/2022 16:36:57 Routine care 499073675 Z34.92 [id number] Анна Geller [facility] [address] [place] [address] 01/25/2022 16:05:59 01/25/2022 16:31:42 Routine care 840580026 Z34.92 Hyperthyro idism in 1347358312 9100 E05.90 [id number] Анна Geller [facility] [address] [place] [address] 02/01/2022 11:17:43 02/01/2022 14:46:21 Routine care 453627719 Z34.92 [id number] Srikanth Kemp MD [place] [address],[place] [address] 02/06/2022 09:26:37 02/06/2022 10:41:20 Large for gestation age fetus 968610185 O36.63X0 Z3A.38 [id number] Анна Geller [facility] [address],[place] [address] 02/06/2022 09:27:02 02/06/2022 11:22:48 Routine care 078325144 Z34.92 [id number] Анна Geller [facility] [address],[place] [address] 03/13/2022 10:40:44 03/13/2022 11:32:54 care 121831260 Z39.2 [id number] Анна Geller [facility] [address],[place] [address] 03/27/2022 15:07:49 03/27/2022 16:02:31 Screening procedure 04968203 Z13.9 Venereal d isease screening 542004779 Z11.3 Insertion of intrauterine contraceptive device 15479323 Z30.430 [id number] Анна Geller [facility] [address],[place] [address] 07/10/2022 15:57:56 07/10/2022 16:20:35 Gynecologic examination 04098650 Z01.419 Z11.3 Z11.8 [id number] Анна Geller [facility] [address],[place] [address] 04/24/2022 15:07:04 04/24/2022 15:59:49 IUD check 573331112 Z30.[address] f/u wwe Abdominal pain 80055130 R10.9 plan referral to GI for abd pain [id number] SAMANTHA Andrea [facility] [address],[place] [address] 09/04/2022 15:27:40 09/04/2022 16:00:14 Labial tear 441802978 S31.41XD site of previous laceration healed, no open areas or signs of infectionc ontinue pelvic rest until healedprec autions reviewed Time spent in visit is a total of 18 mins with at least 50% of visit consisting of counseling and review of plan of care. [id number] Анна Geller CNM [place] [address] [address] 02/19/2023 16:40:41 02/19/2023 17:27:44 Vaginal pain 60324579 R10.2 rec pelvic floor PT if pain persists can remove iud but do not suspect that pain is related, also consider rpt US, flexeril to see if it eases the discomfort Pain in pelvis 05165814 R10.2 [id number] Srikanth Kemp MD [facility] [address] [address] 03/26/2023 16:26:18 03/26/2023 17:12:45 Pain in pelvis 62190651 R10.2 22-year-ol d female with severe pelvic pain that is longstandi ng. She has had this problem since she was a teenager. So that is over 5 years of pelvic pain. She is been treated with multiple medical therapies. She currently has a Mirena IUD. She is taking continuous combined oral contracept tomasz pills in the past. She continued to have pain through all the treatments . She did get relief of her pain when she was . She is severe pain with intercours e that is affecting her relationsh ip. She very likely has endometrio sis. Reviewed endometrio sis in general, symptoms attributab le to it, and potential effects on future fertility. Discussed chronic nature of disease, and frequent need for suppressio n until menopause. Reviewed medical therapies (pros/cons , risks/bene fits of each) and surgical approaches to treatment, including conservati ve procedures and definitive surgery. We have agreed to perform diagnostic laparoscop y. We spent over 40 minutes face-to-fa ce. More than 50% was counseling and we made a decision to perform surgery. I explained the procedure her in great detail. We will move forward with diagnostic laparoscop y. [id number] Srikanth Kemp MD [facility] [address] [address] 05/14/2023 15:15:25 05/14/2023 15:44:35 Postoperative care 460985708 Z48.89 This patient is a 39-year-ol d female who presents for postop follow-up. She is 1 week postop from a diagnostic laparoscop y. Her incisions are clean dry and intact. She has no complaints . She is recovering normally. She will follow up as needed. we need to refer this patient to urology or urogynecol ogy. She has pelvic pain, pain with a full bladder, urinary urge. She may have interstiti al cystitis. she needs an evaluation Chronic in terstitial cystitis 552389350 N30.10 Health Concerns Section Related Observation LastModified by Organization Detai ls LastModified Time None Recorded Concern Status LastModified by Organization Details LastModified Time None Recorded Advance Directives Directive N: Payers Encounter Date Sequence Insurance Name Policy Number Policy Vang Covered Member ID Vang Member ID Guarantor Name 07/10/2022 1 [facility] ON OR AFTER 08/24/20 (MEDICAID REPLACEMENT - HMO) Melani Chery [id number] Melani Chery 09/04/2022 1 [facility] ON OR AFTER 08/24/20 (MEDICAID REPLACEMENT - HMO) Melani Chery [id number] Melani Chery 02/19/2023 1 [facility] ON OR AFTER 08/24/20 (MEDICAID REPLACEMENT - HMO) Melani Chery [id number] Melani Chery 03/26/2023 1 [facility] ON OR AFTER 20 (MEDICAID REPLACEMENT - HMO) Melani Chery [id number] Melani Chery 05/14/2023 1 [facility] ON OR AFTER 08/24/20 (MEDICAID REPLACEMENT - HMO) Melani Chery [id number] Melani Chery Notes Date Note Type Note Provider Name and Address Organization Details Recorded Time 07/10/2022 text/html Annual GYNReport ed bypatient.History:n o gynecologic complaints; still having pain with eating, gi never called Menstrual cycle:Normal menses Urinary symptoms:No hematuria; No incontinence Vulva:No genital lesion Vagina:Normal vaginal discharge Breast:No breast pain; No breast lump; No nipple discharge Sexual complaints:No sexual complaints; No pain during intercourse; Normal libido Menopausal Symptoms:No menopausal symptoms; Normal vaginal lubrication Psychological symptoms:No depression; No anxiety; No PMDD Preventive measures:Encourage self breast examination; Encourage regular exercise; Encourage no tobacco useNotes:breast-fee ding going well, spotting occ with mirena Анна Geller, JOSE RAUL [address], [place], [address], [facility] 07/10/2022 16:19:28 09/04/2022 text/html 22yopresents for vulvar checkhad rougher than normal IC on 08/31, started bleeding during and felt a tearing sensation. Went to the ED on 09/01 and told she had a labial tear, did not need sutures. No current bleeding, no signs of infection. Slight tenderness when touched.IC was consensual per patientmirena IUD for BCneg vaginal d/c, odors, itchingneg pelvic painneg n/v/f SAMANTHA Andrea [address], [place], [address], [facility] 09/04/2022 15:59:22 02/19/2023 text/html c/o intermittent pelvic pain since and placement of IUD, last 4 days constant discomfort feels like cramping contractions. no increase in d/c no odor, no urinary sxs, no gi sxs, afebrilelast us showed IUD in place Haylee turner, [facility] 02/19/2023 17:19:51 03/26/2023 text/html 22-year-old femmaurizio villagomez with severe pelvic pain that is longstanding. She has had this problem since she was a teenager. So that is over 5 years of pelvic pain. She is been treated with multiple medical therapies. She currently has a Mirena IUD. She is taking continuous combined oral contraceptive pills in the past. She continued to have pain through all the treatments. She did get relief of her pain when she was . She is severe pain with intercourse that is affecting her relationship. She very likely has endometriosis. Reviewed endometriosis in general, symptoms attributable to it, and potential effects on future fertility. Discussed chronic nature of disease, and frequent need for suppression until menopause. Reviewed medical therapies (pros/cons, risks/benefits of each) and surgical approaches to treatment, including conservative procedures and definitive surgery. We have agreed to perform diagnostic laparoscopy. We spent over 40 minutes [id number]. More than 50% was counseling and we made a decision to perform surgery. I explained the procedure her in great detail. We will move forward with diagnostic laparoscopy. Srikanth eKmp MD [address], [place], [address], [facility] 05/07/2023 16:51:30 05/14/2023 text/html This patient is a 39-year-old female who presents for postop follow-up. She is 1 week postop from a diagnostic laparoscopy. Her incisions are clean dry and intact. She has no complaints. She is recovering normally. She will follow up as needed. we need to refer this patient to urology or urogynecology. She has pelvic pain, pain with a full bladder, urinary urge. She may have interstitial cystitis. Srikanth Kemp MD [address], [place], [address], [facility] 05/14/2023 15:46:23 OBGyn Episode Ob Episode Information Episode Created Date Number of Fetuses Patient Bloodtype Patient rh Status Prepregnancy Weight lbs Domestic Partner Domestic Partner Phone Father Name Wedding Planner Status 09/15/19 20 1 CLOSED Fetus Data First Name Last Name Admitted to NICU Weight (g) Sex Living Outcome Pediatric Complications Fetus ID Race Codes Race Delivery Type 3175.14 4 F Full Term 3089 Vaginal Delivery Pedro Calculation Initial Pedro Date Initial Exam Date Initial Exam Provider Initial Ultrasound Date Last Menstrual Period Date Ultra Sound Weeks Gestation 0 Eighteen To Twenty Week Pedro Update Ultra Sound Date Fundal Height At Umbil Quickening Date Ultra Sound Latest Weeks Gestation Final Pedro Confirmed By Final Pedro Confirmed Date Final Pedro Date Ultra Sound Latest Days Gestation 0 0 Menstrual History Last Menstrual Date Menses Monthly On Bcp Conception Prior Menses Frequency Hcg Plus Date Menarche Onset Age Delivery Information Delivery Date Delivery Type Labor Anesthesia Weeks Gestation Incision Type Labor Labor Length Hrs Delivered By Post Complications Tubal Sterilization Discharge Date Comments 9 39 Discharge Information Feeding Method Contraceptive Method Maternal HG B and HCT Levels Ob Episode Information Episode Created Date Number of Fetuses Patient Bloodtype Patient rh Status Prepregnancy Weight lbs Domestic Partner Domestic Partner Phone Father Name Wedding Planner Status 08/10/19 22 1 A Positive 126 CLOSED Fetus Data First Name Last Name Admitted to NICU Weight (g) Sex Living Outcome Pediatric Complications Fetus ID Race Codes Race Delivery Type 4053.97 85 M true Full Term [id number] Vaginal Delivery Problems Problem Notes PNL WNL, TSH LOW, T4 WNLCHL/ MARISOL NEG 01/27TSH wnl 01/25 Problem Name Start Date End Date Resolution Snomed Code Not e Depressive disorder 84958145 Zoloft-50 mg, stable Hyperthyroidism 10762441 0.22 ; t4 wnl; repeat 09/07 tsh reflex t4; 01/10 WNL Anemia 12/24/2021 MEDICATION [id number] slowfe 1 tab bid Pedro Calculation Initial Pedro Date Initial Exam Date Initial Exam Provider Initial Ultrasound Date Last Menstrual Period Date Ultra Sound Weeks Gestation 02/19/2022 08/09/2021 07/11/2021 05/15/2021 8 Eighteen To Twenty Week Pedro Update Ultra Sound Date Fundal Height At Umbil Quickening Date Ultra Sound Latest Weeks Gestation Final Pedro Confirmed By Final Pedro Confirmed Date Final Pedro Date Ultra Sound Latest Days Gestation 0 [email or web address] 08/09/2021 02/20/20 22 0 Pre- Flowsheet Flowsheet Date 08/09/2021 Reyes Score Blood Edema Fundus Height Fundus Units Glucose Ketones Leukocytes Nitrite Labor Signs Protein Cervic Dilation Cervic Effacement Cervic Station 12 Type Weight in lbs Pre/Post Dialysis Refused Weight 123.017147956225 BP Diastolic BP Location Tested BP Systolic BP Type 64 R arm 99 sitting Fetus Heart Rate Present A 145 Fetus Movement Comments this patient is a 20-year-ol d 3 para 1011 at 12 weeks gestation who presents for initial care. She is on vaccinated for COVID. She was given other vaccine recommendations. She has remarkable obstetric history. She has some depression for which she takes Zoloft. I described care to her in detail. She begin routine care. She had her blood drawn today. She is doing genetic screening. Flowsheet Date 08/22/2021 Reyes Score Blood Edema Fundus Height Fundus Units Glucose Ketones Leukocytes Nitrite Labor Signs Protein Cervic Dilation Cervic Effacement Cervic Station neg none none trace Type Weight in lbs Pre/Post Dialysis Refused Weight 125.626779715365 BP Diastolic BP Location Tested BP Systolic BP Type 68 105 Fetus Heart Rate Present A 143 Fetus Movement A Yes Comments Patient is here for ER follo w up on pelvic pain and cramping. IN ED and testing done said it was a leaking cyst? us today show CL cyst. still abd cramping, will try and get records of cultures done, not given any meds, will try flexeril, stretching, call if worsens f/u as scheduled Flowsheet Date 08/22/2021 Reyes Score Blood Edema Fundus Height Fundus Units Glucose Ketones Leukocytes Nitrite Labor Signs Protein Cervic Dilation Cervic Effacement Cervic Station Type Weight in lbs Pre/Post Dialysis Refused BP Diastolic BP Location Tested BP Systolic BP Type Fetus Heart Rate Present Fetus Movement Comments Flowsheet Date 09/05/2021 Reyes Score Blood Edema Fundus Height Fundus Units Glucose Ketones Leukocytes Nitrite Labor Signs Protein Cervic Dilation Cervic Effacement Cervic Station neg none none trace Type Weight in lbs Pre/Post Dialysis Refused Weight 129.912269682599 BP Diastolic BP Location Tested BP Systolic BP Type 67 101 Fetus Heart Rate Present A 155 Fetus Movement A Yes Comments patient is having pain, disc harge, and nausea. pain more central now right over pubic symphasis discussed binding, rest, no lifting, precautions reviewed f/u 4 weeks anatomy afp and thyroid today, taking extra iron Flowsheet Date 10/04/2021 Reyes Score Blood Edema Fundus Height Fundus Units Glucose Ketones Leukocytes Nitrite Labor Signs Protein Cervic Dilation Cervic Effacement Cervic Station Type Weight in lbs Pre/Post Dialysis Refused BP Diastolic BP Location Tested BP Systolic BP Type Fetus Heart Rate Present Fetus Movement Comments Flowsheet Date 10/04/2021 Reyes Score Blood Edema Fundus Height Fundus Units Glucose Ketones Leukocytes Nitrite Labor Signs Protein Cervic Dilation Cervic Effacement Cervic Station neg none none trace Type Weight in lbs Pre/Post Dialysis Refused Weight 132.111271983626 BP Diastolic BP Location Tested BP Systolic BP Type 68 105 Fetus Heart Rate Present Fetus Movement A Yes Comments patient is having side pain, discharge, nausea and vomiting. reviewed precautions, getting sick after work, disc eating snacks, hydration, rest after work, check cbc for infection anatomy EIF growth 90% rpt 4 weeks Flowsheet Date 11/01/2021 Reyes Score Blood Edema Fundus Height Fundus Units Glucose Ketones Leukocytes Nitrite Labor Signs Protein Cervic Dilation Cervic Effacement Cervic Station neg none none trace Type Weight in lbs Pre/Post Dialysis Refused Weight 140.865453282491 BP Diastolic BP Location Tested BP Systolic BP Type 68 110 Fetus Heart Rate Present Fetus Movement A Yes Comments patient is having nausea and vomiting. Feels like going to pass out and having migrainesFeels like she is going to pass out for over a month. Random. Happens when sitting or standing. Headaches for 1 week. Tylenol and new rx not helping. Nausea and vomiting off and on entire . Improved early in 2nd trimester. Zofran helped early in but now reglan and zofran do not help. Does occasionally have ruq discomfort or aching. Fatigue. Occasional palpitations. Labs and 24 hour holter. Plan 26 week gtt if testing normal. Flowsheet Date 11/07/2021 Reyes Score Blood Edema Fundus Height Fundus Units Glucose Ketones Leukocytes Nitrite Labor Signs Protein Cervic Dilation Cervic Effacement Cervic Station Type Weight in lbs Pre/Post Dialysis Refused BP Diastolic BP Location Tested BP Systolic BP Type Fetus Heart Rate Present Fetus Movement Comments Flowsheet Date 11/07/2021 Reyes Score Blood Edema Fundus Height Fundus Units Glucose Ketones Leukocytes Nitrite Labor Signs Protein Cervic Dilation Cervic Effacement Cervic Station neg trace none trace Type Weight in lbs Pre/Post Dialysis Refused Weight 143.619503507722 BP Diastolic BP Location Tested BP Systolic BP Type 66 103 Fetus Heart Rate Present Fetus Movement A Yes Comments patient states that having s ome headaches, heart burn, pain, discharge, swelling, nausea and vomiting. efw 90%, turned in heart monitor over the weekend. pvc otherwise wnl will refer to cardiology for sxs, precautions reviewed f/u 4 weeks with gct Flowsheet Date 11/15/2021 Reyes Score Blood Edema Fundus Height Fundus Units Glucose Ketones Leukocytes Nitrite Labor Signs Protein Cervic Dilation Cervic Effacement Cervic Station Type Weight in lbs Pre/Post Dialysis Refused BP Diastolic BP Location Tested BP Systolic BP Type Fetus Heart Rate Present Fetus Movement Comments Flowsheet Date 12/07/2021 Reyes Score Blood Edema Fundus Height Fundus Units Glucose Ketones Leukocytes Nitrite Labor Signs Protein Cervic Dilation Cervic Effacement Cervic Station Type Weight in lbs Pre/Post Dialysis Refused BP Diastolic BP Location Tested BP Systolic BP Type Fetus Heart Rate Present Fetus Movement Comments Flowsheet Date 12/07/2021 Reyes Score Blood Edema Fundus Height Fundus Units Glucose Ketones Leukocytes Nitrite Labor Signs Protein Cervic Dilation Cervic Effacement Cervic Station neg none none trace Type Weight in lbs Pre/Post Dialysis Refused Weight 143.628978766576 BP Diastolic BP Location Tested BP Systolic BP Type 70 120 Fetus Heart Rate Present Fetus Movement A Yes Comments patient is having some pain, contractions, discharge, nausea and vomiting. reviewed precautions efw 95%, eif stable glucose today f/u in 2 weeks with 4 weeks growth Flowsheet Date 12/19/2021 Reyes Score Blood Edema Fundus Height Fundus Units Glucose Ketones Leukocytes Nitrite Labor Signs Protein Cervic Dilation Cervic Effacement Cervic Station neg trace 29 none trace Type Weight in lbs Pre/Post Dialysis Refused Weight 154.898925834541 BP Diastolic BP Location Tested BP Systolic BP Type 67 105 Fetus Heart Rate Present A 143 Present Fetus Movement A Yes Comments patient is having pain, cont ractions, discharge, swelling, nausea and vomiting. some right sided upper quad pain, unsure if its baby moving, will check labs today f/u 2 weeks precautions reviewed ok to call for preadmit Flowsheet Date 12/25/2021 Reyes Score Blood Edema Fundus Height Fundus Units Glucose Ketones Leukocytes Nitrite Labor Signs Protein Cervic Dilation Cervic Effacement Cervic Station Type Weight in lbs Pre/Post Dialysis Refused Weight 155.10072878948 BP Diastolic BP Location Tested BP Systolic BP Type 70 107 Fetus Heart Rate Present A 120 Fetus Movement A Yes Comments Melani is here as FU [place] rodriguezh's yesterday. Was having contractions. tested pos for chlamydia and she wants confirmation, she doesn't believe it. has not taken her prescritpion yet. some white discharge, not unusual. only sx is contractions, but her cervix was closed. GC CT trich done, pt encouraged to take script now as infections can cause labor. will contact with results. discussed abstinence until 2wk after both treated. Flowsheet Date 01/09/2022 Reyes Score Blood Edema Fundus Height Fundus Units Glucose Ketones Leukocytes Nitrite Labor Signs Protein Cervic Dilation Cervic Effacement Cervic Station Type Weight in lbs Pre/Post Dialysis Refused BP Diastolic BP Location Tested BP Systolic BP Type Fetus Heart Rate Present Fetus Movement Comments Flowsheet Date 01/09/2022 Reyes Score Blood Edema Fundus Height Fundus Units Glucose Ketones Leukocytes Nitrite Labor Signs Protein Cervic Dilation Cervic Effacement Cervic Station neg none none trace Type Weight in lbs Pre/Post Dialysis Refused Weight 160.257061453574 BP Diastolic BP Location Tested BP Systolic BP Type 78 113 Fetus Heart Rate Present Fetus Movement A Yes Comments patient states that having s ome contractions, vomiting, contractions, and discharge. check thyroid labs today, 95% hga1c was wnl, plan growth at 38 weeks, gbs next visit, call for preadmission appt. precautions reviewed Flowsheet Date 01/25/2022 Reyes Score Blood Edema Fundus Height Fundus Units Glucose Ketones Leukocytes Nitrite Labor Signs Protein Cervic Dilation Cervic Effacement Cervic Station neg none 36 none trace Type Weight in lbs Pre/Post Dialysis Refused Weight 168.468301988191 BP Diastolic BP Location Tested BP Systolic BP Type 78 119 Fetus Heart Rate Present A 150 Fetus Movement A Yes Comments patient is having some contr actions , pain, discharge, nausea and vomiting. gbs and GARRICK today, unsure about 39 weeks IOL Flowsheet Date 02/01/2022 Reyes Score Blood Edema Fundus Height Fundus Units Glucose Ketones Leukocytes Nitrite Labor Signs Protein Cervic Dilation Cervic Effacement Cervic Station neg trace 38 none trace Type Weight in lbs Pre/Post Dialysis Refused Weight 113.178152053271 BP Diastolic BP Location Tested BP Systolic BP Type 79 115 Fetus Heart Rate Present A 155 Present Fetus Movement A Yes Comments patient states that having p ain, contractions, discharge, swelling and nausea. reviewed precautions cervix almost a 1, thick, soft/posterior, LGA, considering 39 week IOL will discuss at next visit, labor precautions reviewed Flowsheet Date 02/06/2022 Reyes Score Blood Edema Fundus Height Fundus Units Glucose Ketones Leukocytes Nitrite Labor Signs Protein Cervic Dilation Cervic Effacement Cervic Station Type Weight in lbs Pre/Post Dialysis Refused BP Diastolic BP Location Tested BP Systolic BP Type Fetus Heart Rate Present Fetus Movement Comments Flowsheet Date 02/06/2022 Reyes Score Blood Edema Fundus Height Fundus Units Glucose Ketones Leukocytes Nitrite Labor Signs Protein Cervic Dilation Cervic Effacement Cervic Station neg trace none trace 1cm 50% -1 Type Weight in lbs Pre/Post Dialysis Refused Weight 165.943495631102 BP Diastolic BP Location Tested BP Systolic BP Type 78 113 Fetus Heart Rate Present Fetus Movement A Yes Comments patient is having contractio ns, discharge, swelling and nausea. EFW 93% at 8lb 10 oz, last baby 7 lb discussed IOL at 39 weeks, risks vs benefit, pt to call if desires, otherwise labor precautions reviewed +FM, f/u one week Flowsheet Date 03/13/2022 Reyes Score Blood Edema Fundus Height Fundus Units Glucose Ketones Leukocytes Nitrite Labor Signs Protein Cervic Dilation Cervic Effacement Cervic Station Type Weight in lbs Pre/Post Dialysis Refused Weight 142.684727863127 BP Diastolic BP Location Tested BP Systolic BP Type 77 L arm 110 sitting Fetus Heart Rate Present Fetus Movement Comments Flowsheet Date 03/27/2022 Reyes Score Blood Edema Fundus Height Fundus Units Glucose Ketones Leukocytes Nitrite Labor Signs Protein Cervic Dilation Cervic Effacement Cervic Station Type Weight in lbs Pre/Post Dialysis Refused Weight 143.912282876505 BP Diastolic BP Location Tested BP Systolic BP Type 73 115 Fetus Heart Rate Present Fetus Movement Comments Flowsheet Date 04/24/2022 Reyes Score Blood Edema Fundus Height Fundus Units Glucose Ketones Leukocytes Nitrite Labor Signs Protein Cervic Dilation Cervic Effacement Cervic Station Type Weight in lbs Pre/Post Dialysis Refused Weight 135.28820279094 BP Diastolic BP Location Tested BP Systolic BP Type 71 105 Fetus Heart Rate Present Fetus Movement Comments Menstrual History Last Menstrual Date Menses Monthly On Bcp Conception Prior Menses Frequency Hcg Plus Date Menarche Onset Age 0305/15/2021 Genetic Screening And Infection History Question Response Note Mental Retardation/Autism false Patient's Age Will Be 35 Years Or Older At Estim ated Date of Delivery false Thalassemia (Serbian, Cymro, Mediterranean, Or Background): MCV < 80 false Neural Tube Defect (Meningomyelocele, Spina Bifi da, Or Anencephaly) false Congenital Heart Defect false Down Syndrome false Anmol-Sachs (eg, Voodoo, Cajun, Mexican-Albanian) f alse Arcenio Disease false Sickle Cell Disease Or Trait () false Hemophilia Or Other Blood Disorders false Muscular Dystrophy false Cystic Fibrosis false Cecil's Chorea false Intellectual Disability/Autism false If Yes, Was Person Tested For Fragile X? false Other Inherited Genetic Or Chromosomal Disorder false Maternal Metabolic Disorder (eg, Type 1 Diabetes , PKU) false Patient Or Baby's Father Had A Child With Defects Not Listed Above false Recurrent Loss, Or A Stillbirth false Medications (including Suppl ements, Vitamins, Herbs, OTC Drugs), Illicit/Recreational Drugs, Alcohol false If Yes, Agent(s) And Strength/Dosage false Any Other Genetic History false Live With Someone With TB Or Exposed To TB false Patient Or Partner Has History Of Genital Herpes false Rash Or Viral Illness Since Last Menstrual Perio d false History Of STD, Gonorrhea, Chlamydia, HPV, Syphi lis false Other Infection History false History of HIV false History of Hepatitis false Prior GBS-infected child false Hemoglobinopathy Or Carrier false Other Structural Defect false Recent Travel History Outside of Country false Delivery Information Delivery Date Delivery Type Labor Anesthesia Weeks Gestation Incision Type Labor Labor Length Hrs Delivered By Post Complications Tubal Sterilization Discharge Date Comments 2 [facility] idural 38.3 false Duyen Анна JOSE RAUL Anemia & LGA Discharge Information Feeding Method Contraceptive Method Maternal HG B and HCT Levels Breast Ob Episode Information Episode Created Date Number of Fetuses Patient Bloodtype Patient rh Status Prepregnancy Weight lbs Domestic Partner Domestic Partner Phone Father Name Wedding Planner Status 08/10/19 22 1 CLOSED Fetus Data First Name Last Name Admitted to NICU Weight (g) Sex Living Outcome Pediatric Complications Fetus ID Race Codes Race Delivery Type , [place] [id number] Pedro Calculation Initial Pedro Date Initial Exam Date Initial Exam Provider Initial Ultrasound Date Last Menstrual Period Date Ultra Sound Weeks Gestation 0 Eighteen To Twenty Week Pedro Update Ultra Sound Date Fundal Height At Umbil Quickening Date Ultra Sound Latest Weeks Gestation Final Pedro Confirmed By Final Pedro Confirmed Date Final Pedro Date Ultra Sound Latest Days Gestation 0 0 Menstrual History Last Menstrual Date Menses Monthly On Bcp Conception Prior Menses Frequency Hcg Plus Date Menarche Onset Age Delivery Information Delivery Date Delivery Type Labor Anesthesia Weeks Gestation Incision Type Labor Labor Length Hrs Delivered By Post Complications Tubal Sterilization Discharge Date Comments 8 Discharge Information Feeding Method Contraceptive Method Maternal HG B and HCT Levels
--- OUTSIDE RECORDS SUMMARY | 2024-06-26 19:40 | XMS_ITS | Referral Summary ---
Author Organization [facility] Address [address] [place] [id number] Care Team Providers Care Product Info Specialist Name Role Phone No, Physician Primary Care Provider [phone] Allergies Active Allergy Reactions Criticality Noted Date [...] restrictions as well. She is in understanding. 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
[2024-06-26 20:39] LABS: Glucose Point of Care 131 mg/dl (65-105)
--- OUTSIDE RECORDS SUMMARY | 2024-06-26 20:46 | XMS_ITS | Clinical Summary ---
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
--- OUTSIDE RECORDS SUMMARY | 2024-06-26 20:46 | XMS_ITS | Clinical Summary ---
Author Organization [facility] Address [address] [place] [address] Care Team Providers Care Database Administration Associate Name Role Phone Duyen, Анна BILL Primary Care Provider [phone] Allergies Active Allergy Reactions Criticality Noted Date [...] How often do you attend chur or jain services? Never 12/20/2021 Do you belong to any clubs o r organizations such as zoroastrianism groups, unions, fraternal or athletic groups, or [...] and heating? Not hard at all 12/20/2021 [facility] [place] of Occupat ional Health - Occupational Stress [...] place to sleep or slept in a senior care (including now)? No 12/20/2021 Comments No Sex and Gender Information Value Date Recorded Sex Assigned at Not on file Legal Sex Female 6:53 PM CDT Gender Identity Not on file Sexual Orientation Not on file Last Filed Vital Signs Vital Sign Reading Time Taken Comments Blood Pressure 119/79 04/19/2023 9:00 PM CHUTE BUILDER Pulse 99 04/19/2023 9:00 PM CHUTE BUILDER Temperature 37.2 C (98.9 F) 04/19/2023 9:00 PM CHUTE BUILDER Respiratory Rate 16 04/19/2023 9:00 PM CHUTE BUILDER Oxygen Saturation 97% 04/19/2023 9:00 PM CHUTE BUILDER Inhaled Oxygen Concentration - - Weight 51.7 kg (113 lb 15.7 oz) 04/19/2023 6:46 PM CHUTE BUILDER Height 172.7 cm (5' 8 ) 04/19/2023 6:46 PM CHUTE BUILDER Body Mass Index 17.33 04/19/2023 6:46 PM CHUTE BUILDER Plan of Treatment Health Maintenance Due Date [...] GC RNA STAT 12/21/2021 2:19 AM CDT ([facility]) from Last 3 Months or Most Recently Relevant to Health Maintenance Results * (ABNORMAL) CHLAMYDIA GC RNA (12/21/2021 2:19 AM CDT) SPEC DESCRIPTION UNKNOWN 12/22/19 2:44 AM CDT [facility] CHLAMYDIA RNA TMA POSITIVE(A) NEGATIVE 2021 11:09 AM CDT [facility] Comment:PERFORMED BY NUCLEIC ACID AMPLIFICATION N.GONORRHOEAE RNA TMA NEGATIVE NEGATIVE 12/21/2021 11:09 AM CDT [facility] Comment:PERFORMED BY NUCLEIC ACID AMPLIFICATION VAGINAL STRUCTURE / Unknown 12/21/2021 2:19 AM CDT us Sarah Rajan MD MICROBIOLOGY - GENERAL ORDERABLE S Final Result [facility] [address] [place] [address], [place] [phone] [facility] [address] [place] [address], from Last 3 Months or Most Recently Relevant to Health Maintenance Insurance [employer] Care Teams Database Administration Associate Relationship Specialty Start Date End Date Анна Geller NP [address] [place] [address] PCP - General OBGYN 02/18/19
--- OUTSIDE RECORDS SUMMARY | 2024-06-26 20:46 | XMS_ITS | Clinical Summary ---
Author Organization [facility] [employer] Address [address] [place] [address] Care Team Providers Care Acid Loader Name Role Phone Unavailable Primary Care Provider Unavailabl e Source Comments [facility],non-owned Affiliates and Associated Physician Practices is amultiple site organization consisting of ambulatory clinics and hospital sitesin [place], [place], [place] and [place]. This disclosure is being madepursuant to the Care Everywhere program and may not contain all information available regarding this patient. Last updated 17.[facility] [employer] Allergies Active Allergy Reactions Criticality Noted Date Comments Latex Rash Low 10/23/2012 Mushroom Extract Complex Urticaria 10/23/2012 Koppel Urticaria Medium 10/23/2012 Medications * Be aware [...] on file Legal Sex Female 5:43 AM RECONCILIATION CLERK Gender Identity Not on file Sexual Orientation Not on file Last Filed Vital Signs Vital Sign Reading Time Taken Comments Blood Pressure 118/68 06/12/2021 3:08 PM CDT Pulse 86 05/21/2016 11:34 PM CDT Temperature 36.9 C (98.4 F) 05/01/2021 2:50 PM RECONCILIATION CLERK Respiratory Rate 16 05/21/2016 11:34 PM CDT [...] patient's age to complete this topic Insurance [facility] SELF PAY NO INSURANCE Member Subscriber Plan / Payer (Ef fective for All Dates) Name:Yang Velázquez Member ID:Not on file Relation to Subscriber:Not on file Name:YANG VELÁZQUEZ Subscriber ID:Not on file Address: [address] [place] [address] Payer ID:Not on file Group ID:Not on file Type:Self Pay Address: [place], [place] [facility] SELF PAY NO INSURANCE Member Subscriber Plan / Payer (Ef fective for All Dates) Name:Yang Velázquez Member ID:Not on file Relation to Subscriber:Not on file Name:YANG VELÁZQUEZ Subscriber ID:Not on file Address: [address] [place] [address] Payer ID:Not on file Group ID:Not on file Type:Self Pay Address: [place], [place] [facility] SELF PAY NO INSURANCE Member Subscriber Plan / Payer (Ef fective for All Dates) Name:Yang Velázquez Member ID:Not on file Relation to Subscriber:Not on file Name:YANG VELÁZQUEZ Subscriber ID:Not on file Address: [address] [place] [address] Payer ID:Not on file Group ID:Not on file Type:Self Pay Address: [place], [place]
--- OUTSIDE RECORDS SUMMARY | 2024-06-26 20:46 | XMS_ITS | Clinical Summary ---
Author Organization [facility] Address [address] [place] [id number] Care Team Providers Care Pediatric Pathologist Name Role Phone Unavailable Primary Care Provider [...]
--- OUTSIDE RECORDS SUMMARY | 2024-06-26 20:46 | XMS_ITS | Encounter Summary ---
Author Organization [facility] Health Address [address] [place] [address] Care Team Providers Care Journey Lineman Name Role Phone Cornelio Neumann MD Primary Care Provider [phone] Reason for Visit * Reason Onset Date Comments Referral 12/05/2020 Encounter Details Date Type Department Care Team (Late st Contact Info) Description 12/05/2020 Telephone [facility] [address], [place] [id number] Katina Ayon MD [address] [place] [address] Referral Social History Tobacco Use Types Packs/Day Years Used Date Smoking Tobacco: Never Smokeless Tobacco: Never Alcohol Use Standard Drinks/Week Comments No 0 (1 standard drink = 0.6 oz pur e alcohol) Comments Unknown Sex and Gender Information Value Date Recorded Sex Assigned at Not on file 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 Pt diagnosed with Pelvic Congestion Syndrome. If you get her voicemail, a detailed message is fine. [phone] ext [phone] documented in this encounter Plan of Treatment Not on file documented as of this encounter Visit Diagnoses Not on filedocumented in this encounter Care Teams Journey Lineman Relationship Specialty Start Date End Date Cornelio Neumann MD [address] [place] [id number] PCP - General Pediatrics 10/20/12 08/06/23 documented as of this encounter
--- OUTSIDE RECORDS SUMMARY | 2024-06-26 20:46 | XMS_ITS | Referral Summary ---
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
--- NOTE | 2024-06-26 20:56 | ED.GENADULT ---
HPI - General Adult General Chief complaint: Unspecified Stated complaint: smoked bad week Time Seen by Provider: 06/26/24 20:31 Source: patient and family Mode of arrival: ambulatory Limitations: no limitations History of Present Illness HPI narrative: Patient is a 23-year-old female who presents the ED with report of dizziness, adverse reaction to marijuana. Patient significant other at bedside assisted in providing information. He reports they went to a marijuana event at a dispensary today when patient smoked a weed cartridge pen. She began feeling unwell afterwards, began feeling dizzy, lightheaded, thirsty, nauseous, weak. She was brought here for further evaluation. Patient reported feeling anxious and is worried she will not wake up if she closes her eyes. Significant other did smoke the same cartridge pen and has not had any adverse effects. Patient denies any pain. She denies taking any other medications, drugs, alcohol. Related Data Home Medications ?Medication ?Instructions ?Recorded ?Confirmed ?Last Taken ?Type cyclobenzaprine 5 mg tablet 5 mg PO TID PRN Muscle Spasm 03/07/23 05/07/23 03/18/23 History albuterol sulfate 90 mcg/actuation 2 puff inhalation Q6H PRN Wheezing 04/30/23 05/07/23 Unknown History aerosol inhaler Allergies Allergy/AdvReac Type Severity Reaction Status Date / Time latex Allergy Mild Rash Verified 06/26/24 19:49 mushroom Allergy Mild Rash Verified 06/26/24 19:49 strawberry Allergy Mild Rash Verified 06/26/24 19:49 [place] Allergy Unknown Rash Uncoded 06/26/24 19:49 Review of Systems Review of Systems: All systems reviewed & are unremarkable except as noted in HPI. All systems reviewed & are unremarkable except as noted in HPI and below PMFSH Past Medical History Medical History Migraine Underweight Eosinophilic esophagitis Weight loss Altered bowel habits Abdominal pain Anxiety Depression Family History Family History Mother Thyroid cancer Social History Social History Smoking status: Never smoker Alcohol intake: never Substance use: current Substance use type: marijuana Lack of Transportation: No Lack of Food: Never True Current Housing: I Have Housing Concerned About Future Housing: No Difficulty Paying Gas/Electric Bills: No Difficulty Paying for Meds: No Currently Unemployed: No Education: High School Diploma/GED Difficulty w/ Childcare or Family Care: No Living arrangements: with family Occupation/Education: occupation Additional occupation/education comments: teacher's aid Gender identity (if verbalized by the patient): Female Spiritual care concerns: No Exam Narrative: GENERAL: Anxious appearing, thin, non-toxic, in no acute distress. HEAD: Normocephalic, atraumatic. EYES: PERRL/EOMI, conjunctiva clear. RESPIRATORY: Airway patent, respirations nonlabored. Clear to auscultation bilaterally, no rales, rhonchi, wheezing. CARDIOVASCULAR: Regular rate and rhythm without murmurs, rubs, or gallops. MUSCULOSKELETAL: Moves all extremities. No gross deformities. SKIN: Warm, dry, normal color. NEURO: A&O X3. Anxious, moaning. Follows commands. Speech is slow and stuttered but clear. Cranial nerves II-XII grossly intact. No ataxic movements. Moves all extremities. PSYCHIATRIC: Mildly anxious. Normal interaction. Course Vital Signs Vital signs: Vital Signs Temperature 97 F L 06/26/24 19:43 Pulse Rate 100 06/26/24 19:43 Respiratory Rate 15 06/26/24 19:43 Blood Pressure 123/71 06/26/24 19:43 Pulse Oximetry 100 06/26/24 19:43 Oxygen Delivery Room Air 06/26/24 19:43 Temperature 97 F L 06/26/24 19:43 Pulse Rate 66 06/26/24 22:02 Respiratory Rate 15 06/26/24 22:02 Blood Pressure 119/78 06/26/24 22:01 Pulse Oximetry 100 06/26/24 22:02 Oxygen Delivery Room Air 06/26/24 19:43 Medical Decision Making MDM Narrative Medical decision making narrative: Patient presented to ED with abnormal reaction to marijuana. Vital signs are stable upon arrival. Patient mildly anxious. She is neurologically intact upon my evaluation. No focal deficits. She is able to follow commands. Initially had some difficulty speaking and would only moan to different questions, but with encouragement, she was able to speak clearly. Denies pain. Significant other reports patient was at her baseline prior to smoking the marijuana pen and this reaction only happened after smoking the pen. Blood glucose within normal range. UA with 21-50 WBC, but occasional squamous cells. Urine drug screen positive for cannabinoids, otherwise negative. Patient denies any other drug or alcohol use today. Patient given fluids and monitored in the ED for several hours. On re-evaluation and after a short nap, she feels completely back to her baseline. She has been ambulatory to and from the bathroom multiple times without issue. Denies any further symptoms. States she is ready to go home. Advised likely adverse reaction to new form of marijuana. Advised to avoid further drug use. Advised to stay well hydrated. Discussed urinary findings. Patient denies any urinary complaints, dysuria, frequency, hematuria. She has no concern for UTI at this time. Advised will send urine for culture, recommended follow-up with PCP for culture results. Given return precautions. Patient in agreement with plan. She feels comfortable going home. Significant other will be driving patient home. Discharged in stable condition. Medical Records Medical records reviewed: Yes I reviewed the external patient's medical records. Vital Signs Vital Signs: Vital Signs Temperature 97 F L 06/26/24 19:43 Pulse Rate 100 06/26/24 19:43 Respiratory Rate 15 06/26/24 19:43 Blood Pressure 123/71 06/26/24 19:43 Pulse Oximetry 100 06/26/24 19:43 Oxygen Delivery Room Air 06/26/24 19:43 Temperature 97 F L 06/26/24 19:43 Pulse Rate 66 06/26/24 22:02 Respiratory Rate 15 06/26/24 22:02 Blood Pressure 119/78 06/26/24 22:01 Pulse Oximetry 100 06/26/24 22:02 Oxygen Delivery Room Air 06/26/24 19:43 Lab Data Lab results reviewed: Yes I reviewed the patient's lab results. Labs: Lab Results 06/26/24 06/26/24 Range/Units 20:36 22:34 POC Capillary Glucose 131 H (65-105) mg/dl Urine Color Yellow (Yellow) Urine Appearance Cloudy H (Clear) Urine pH 5.5 (5.0-9.0) Ur Specific [place] 1.024 (1.001-1.035) Urine Protein Negative (Negative) mg/dL Urine Glucose (UA) Negative (Negative) mg/dL Urine Ketones Negative (Negative) mg/dL Ur Blood (Man) 1+ H (Negative) Urine Nitrate Negative (Negative) Urine Bilirubin Negative (Negative) Urine Urobilinogen 0.2 (<2.0) mg/dL Leukocyte Esterase Rfl 1+ H (Negative) SERGIO/UL Urine RBC 0-2 (0-2) /hpf Urine WBC 21-50 H (0-3) /hpf Ur Squamous Epith Cells Occasional (Few) /hpf Urine Bacteria 1+ H /hpf Urine Casts 0-2 Urine Opiates Screen Negative (Negative) Urine Methadone Screen Negative (Negative) Ur Barbiturates Screen Negative (Negative) Ur Phencyclidine Scrn Negative (Negative) Ur Amphetamine Screen Negative (Negative) U Benzodiazepines Scrn Negative (Negative) Urine Cocaine Screen Negative (Negative) U Cannabinoids Screen Positive A (Negative) Discharge Plan Discharge Clinical Impression: Abnormal urinalysis Adverse reaction to cannabis Qualifiers: Encounter type: initial encounter Qualified Code(s): T40.715A - Adverse effect of cannabis, initial encounter Patient Disposition: Home Condition: Stable Instructions: Antibiotic Form, Cannabis Use Disorder (ED) Additional Instructions: Avoid further drug use. Stay well hydrated. Get plenty of rest. Follow-up with your primary care doctor for further evaluation as needed. Your urinalysis here showed signs of possible infection. Follow-up with PCP for urine culture results. Return to the ED for new or worsening concerns. Patient Language: Tajik Prescriptions: No Action cyclobenzaprine 5 mg tablet 5 mg PO TID PRN (Reason: Muscle Spasm) albuterol sulfate 90 mcg/actuation HFA aerosol inhaler 2 puff INHALATION Q6H PRN (Reason: Wheezing) oxycodone-acetaminophen 5-325 mg tablet 1 tablet PO Q4H PRN (Reason: pain) Qty: 14 0RF Follow-up/Referrals: PHYSICIAN,SWITCHBOARD OPERATOR RECEPTIONIST [Primary Care Provider] - Jeromy Patricia MD [Physician] - (PRIMARY CARE) Time of Disposition: 23:33
[2024-06-26] MEDS: SODIUM CHLORIDE 0.9% IV 1,000 ML 999 ML IV CONT (21:18)
[2024-06-26 22:45] LABS: Add Urine Microscopic? YES; Appearance Urine Cloudy (Clear); Bacteria Urine 1+ /hpf; Bilirubin Urine Negative (Negative); Blood Urine 1+ (Negative); Color Urine Yellow (Yellow); Glucose Urine UA Negative (Negative); Ketones Urine Negative (Negative); Leukocyte Esterase Ur 1+ LEU/UL (Negative); Nitrate Urine Negative (Negative); Non Pathogenic Casts 0-2; Protein Urine Negative (Negative); RBC Urine 0-2 /hpf (0-2); Specific Grav Ur 1.024 (1.001-1.035); Squamous Epithelial Cell Urine Occasional /hpf (Few); Urobilinogen Urine 0.2 mg/dL (<2.0); WBC Urine 21-50 /hpf (0-3); pH Urine 5.5 (5.0-9.0)
[2024-06-26 23:00] LABS: Amphetamine Screen Urine Negative (Negative); Barbiturate Screen Urine Negative (Negative); Benzodiazepines Screen Urine Negative (Negative); Cannabinoid Screen Urine Positive (Negative); Cocaine Screen Urine Negative (Negative); Methadone Screen Urine Negative (Negative); Opiate Screen Urine Negative (Negative); Phencyclidine Screen Urine Negative (Negative)
== END 2024-06-26 23:41 | disposition home or self-care (01) ==
PROVIDERS: Emergency Provider Physician Assistant
DX: T40.715A Adverse effect of cannabis, initial encounter (principal); F41.8 Other specified anxiety disorders
CPT/HCPCS: 80307; 81001; 82948; 87086; 96360; 99283; J7030

== ENCOUNTER 2024-09-15 19:37 | Emergency (ER) | payer OTHER, SELFPAY ==
--- OUTSIDE RECORDS SUMMARY | 2024-09-15 19:40 | XMS_ITS | Clinical Summary ---
Author Organization [facility] Address [address] [place] [address] Care Team Providers Care Dry Mop Maker Name Role Phone [place], Анна BILL Primary Care Provider [phone] Allergies Active Allergy Reactions Criticality Noted Date [...] How often do you attend chur or protestant services? Never 12/20/2021 Do you belong to any clubs o r organizations such as voodoo groups, unions, fraternal or athletic groups, or [...] and heating? Not hard at all 12/20/2021 [facility] [place] of Occupat ional Health - Occupational Stress [...] place to sleep or slept in a residential (including now)? No 12/20/2021 Comments No Sex and Gender Information Value Date Recorded Sex Assigned at Not on file Legal Sex Female 6:53 PM CDT Gender Identity Not on file Sexual Orientation Not on file Last Filed Vital Signs Vital Sign Reading Time Taken Comments Blood Pressure 119/79 04/19/2023 9:00 PM PHYSIATRIST Pulse 99 04/19/2023 9:00 PM PHYSIATRIST Temperature 37.2 C (98.9 F) 04/19/2023 9:00 PM PHYSIATRIST Respiratory Rate 16 04/19/2023 9:00 PM PHYSIATRIST Oxygen Saturation 97% 04/19/2023 9:00 PM PHYSIATRIST Inhaled Oxygen Concentration - - Weight 51.7 kg (113 lb 15.7 oz) 04/19/2023 6:46 PM PHYSIATRIST Height 172.7 cm (5' 8) 04/19/2023 6:46 PM PHYSIATRIST Body Mass Index 17.33 04/19/2023 6:46 PM PHYSIATRIST Plan of Treatment Health Maintenance Due Date [...] GC RNA STAT 12/21/2021 2:19 AM CDT ([facility] from Last 3 Months or Most Recently Relevant to Health Maintenance Results * (ABNORMAL) CHLAMYDIA GC RNA (12/21/2021 2:19 AM CDT) SPEC DESCRIPTION UNKNOWN 12/22/19 2:44 AM CDT [facility] [place] RNA TMA POSITIVE(A) NEGATIVE 2021 11:09 AM CDT [facility] Comment:PERFORMED BY NUCLEIC ACID AMPLIFICATION N.GONORRHOEAE RNA TMA NEGATIVE NEGATIVE 12/21/2021 11:09 AM CDT [facility] Comment:PERFORMED BY NUCLEIC ACID AMPLIFICATION VAGINAL STRUCTURE / Unknown 12/21/2021 2:19 AM CDT us Sarah Rajan MD MICROBIOLOGY - GENERAL ORDERABLE S Final Result [facility] [address] [place] [address], [place] [phone] [facility] [address] [place] [address], from Last 3 Months or Most Recently Relevant to Health Maintenance Insurance [place] Care Teams Dry Mop Maker Relationship Specialty Start Date End Date Анна Geller NP [address] [place] [address] PCP - General OBGYN 02/18/19
--- OUTSIDE RECORDS SUMMARY | 2024-09-15 19:40 | XMS_ITS | Patient Health Record ---
Author Organization [facility] Address [address] [place] [address] Support Name Relationship Address Phone nathan chery Emergency Contact Unknown [phone] Melani Chery Guarantor Unknown [phone] Reason For Referral No Information Social History Tobacco Use: Social History Observation Description Date Details (start date - stop date) Never Smoker NA - NA Tobacco Use/Smoking Question Answer Notes Are you a nonsmoker Plan Of Treatment No Information Medical (General) History Surgical History Surgery Date(Month/Year)
--- OUTSIDE RECORDS SUMMARY | 2024-09-15 19:40 | XMS_ITS | Clinical Summary ---
Author Organization [facility] Address [address] [place] [address] Care Team Providers Care Roll Grinder Operator Name Role Phone Unavailable Primary Care Provider [...] (3 - 2-dose series) 01/23/2013 09/24/2012, 07/24/2012 SARS-COV-2 Immunization (2023-25 season) 2023 Influenza Immunization (#1) 2024 Respiratory Syncytial Virus (RSV) Immunization (Adult) (1 [...]
[2024-09-15 19:44] VITALS: BP 130/79; PULSE 76; RESP 18; TEMP 36.8; O2SAT 100
[2024-09-15 20:09] LABS: Add Urine Microscopic? YES; Appearance Urine Cloudy (Clear); Glucose Urine UA Negative (Negative); Leukocyte Esterase Ur 1+ LEU/UL (Negative); Nitrate Urine Negative (Negative); Non Pathogenic Casts 0-2; Specific Grav Ur 1.022 (1.001-1.035)
[2024-09-15 20:22] LABS: BEDSIDEPREGUCG Negative (Negative)
--- NOTE | 2024-09-15 22:36 | PC.NURSE ---
Pt is ambulatory to intake desk and states she is going to leave. Pt walked out with steady gait. Pt left without being seen.
--- OUTSIDE RECORDS SUMMARY | 2024-09-15 23:07 | XMS_ITS | Clinical Summary ---
Author Organization [facility] Address [address] [place] [address] Care Team Providers Care Instructional Materials Director Name Role Phone Unavailable Primary Care Provider [...]
--- OUTSIDE RECORDS SUMMARY | 2024-09-15 23:07 | XMS_ITS | Clinical Summary ---
Author Organization [facility] Address [address] [place] [address] Care Team Providers Care Medical Payment Poster Name Role Phone [place], Анна BILL Primary Care Provider [phone] Allergies Active Allergy Reactions Criticality Noted Date [...] any clubs o r organizations such as scientology groups, unions, fraternal or athletic groups, or [...] and heating? Not hard at all 12/20/2021 [facility] [place] of Occupat ional Health - Occupational Stress [...] Comments Blood Pressure 119/79 04/19/2023 9:00 PM PLASTICS FITTER Pulse 99 04/19/2023 9:00 PM PLASTICS FITTER Temperature 37.2 C (98.9 F) 04/19/2023 9:00 PM PLASTICS FITTER Respiratory Rate 16 04/19/2023 9:00 PM PLASTICS FITTER Oxygen Saturation 97% 04/19/2023 9:00 PM PLASTICS FITTER Inhaled Oxygen Concentration - - Weight 51.7 kg (113 lb 15.7 oz) 04/19/2023 6:46 PM PLASTICS FITTER Height 172.7 cm (5' 8) 04/19/2023 6:46 PM PLASTICS FITTER Body Mass Index 17.33 04/19/2023 6:46 PM PLASTICS FITTER Plan of Treatment Health Maintenance Due Date [...] GC RNA STAT 12/21/2021 2:19 AM CDT ([facility]) from Last 3 Months or Most Recently Relevant to Health Maintenance Results * (ABNORMAL) CHLAMYDIA GC RNA (12/21/2021 2:19 AM CDT) SPEC DESCRIPTION UNKNOWN 12/22/19 2:44 AM CDT [facility] [place]LAMYD[place] RNA TMA POSITIVE(A) NEGATIVE 2021 11:09 AM CDT [facility] Comment:PERFORMED BY NUCLEIC ACID AMPLIFICATION N.GONORRHOEAE RNA TMA NEGATIVE NEGATIVE 12/21/2021 11:09 AM CDT [facility] Comment:PERFORMED BY NUCLEIC ACID AMPLIFICATION VAGINAL STRUCTURE / Unknown 12/21/2021 2:19 AM CDT us Sarah Rajan MD MICROBIOLOGY - GENERAL ORDERABLE S Final Result [facility] [address] [place] [address], [place] [phone] [facility] [address] [place] [address], from Last 3 Months or Most Recently Relevant to Health Maintenance Insurance [place] Care Teams Medical Payment Poster Relationship Specialty Start Date End Date Анна Geller NP [address] [place] [address] PCP - General OBGYN 02/18/19
== END 2024-09-15 22:36 | disposition left against medical advice (07) ==
PROVIDERS: Emergency Provider Student in an Organized Health Care Education/Training Program
DX: N93.9 Abnormal uterine and vaginal bleeding, unspecified (principal)
CPT/HCPCS: 81001; 81025; 87086; 99199